=== PATIENT | female | born 1950 | race Caucasian/White ===

== ENCOUNTER 2020-03-06 11:47 | Outpatient (CLI) | payer MEDICARE, SELFPAY ==
--- NOTE | 2020-03-06 13:03 | ECG_ITS ---
Measurements Intervals [place] Rate: 75 P: 60 WI: 157 QRS: -28 QRSD: 103 T: 8 QT: 392 QTc: 440 Interpretive Statements SINUS RHYTHM BORDERLINE R WAVE PROGRESSION, ANTERIOR LEADS BORDERLINE T WAVE ABNORMALITY- INFERIOR LEADS BASELINE ARTIFACT- V6 BORDERLINE ECG Electronically Signed On 03-06-2020 13:34:52 CDT by Will Rinaldi D.O.
[2020-03-06 13:27] LABS: Basophils Percent Auto 0.9 % (0.2-1.2); Eosinophils Absolute Auto 0.1 K/mm3 (0-0.3); Eosinophils Percent Auto 1.4 % (0-4.4); Hematocrit 36.2 % (37.0-47.0); Hemoglobin 11.4 g/dL (12.0-15.0); Immature Granulocyte Absolute 0.01 K/mm3 (0.00-0.031); Immature Granulocyte Percent A 0.2 % (0-0.5); Lymphocytes Absolute Auto 1.46 K/mm3 (0.9-3.2); Lymphocytes Percent Auto 33.9 % (18.3-44.2); Mean Corpuscular HGB Conc 31.5 g/dl (32-36); Mean Corpuscular Hemoglobin 26.7 pg (26-34); Mean Corpuscular Volume 84.8 fl (80-100); Mean Platelet Volume 9.3 fl (7.4-10.4); Monocytes Absolute Auto 0.6 K/mm3 (0.1-0.6); Monocytes Percent Auto 14.2 % (2.6-8.5); Neutrophils Absolute Auto 2.1 K/mm3 (1.3-6.7); Neutrophils Percent Auto 49.4 % (45.5-73.1); Platelet Count Result 325 k/mm3 (150-375); Red Blood Count 4.27 M/mm3 (4.2-5.4); Red Cell Distribution Width 13.9 % (11.5-14.5); White Blood Count 4.3 K/mm3 (4.5-10.0)
[2020-03-06 13:31] LABS: Add Urine Microscopic? NO; Appearance Urine Clear (Clear); Bilirubin Urine Negative (Negative); Blood Urine Negative (Negative); Color Urine Yellow (Yellow); Glucose Urine UA Negative (Negative); Ketones Urine Negative (Negative); Leukocyte Esterase Ur Negative LEU/UL (Negative); Nitrate Urine Negative (Negative); Protein Urine Negative (Negative); Specific Grav Ur 1.013 (1.001-1.035); Urobilinogen Urine Negative mg/dL (<2.0)
[2020-03-06 13:36] LABS: Hemoglobin A1C 5.2 % (<5.7); Urine Cotinine NEGATIVE
[2020-03-06 13:38] LABS: Prothrombin Time 12.6 Seconds (11.1-14.7)
[2020-03-06 13:39] LABS: Partial Thromboplastin Time 29.4 SECONDS (22.3-36.8)
[2020-03-06 13:51] LABS: Anion Gap 3 mmol/L (8-16); Blood Urea Nitrogen 11 mg/dL (7-17); Calcium 9.5 mg/dL (8.4-10.2); Carbon Dioxide 30 mmol/L (22-30); Chloride 103 mmol/L (98-107); Estimated Glomerular Filt Rate 49; Glucose 101 mg/dL (65-105); Potassium 4.3 mmol/L (3.4-5.0); Sodium 136 mmol/L (137-145)
== END 2020-03-06 11:48 | disposition home or self-care (01) ==
LOC: ANHSURGERY 11:53
PROVIDERS: PCP Family Medicine; Visit Provider Orthopaedic Surgery
DX: Z01.818 Encounter for other preprocedural examination (principal); M17.11 Unilateral primary osteoarthritis, right knee
CPT/HCPCS: 36415; 80048; 80307; 81003; 82040; 83036; 85025; 85610; 85730; 86850; 86900; 86901; 87081; 93005

== ENCOUNTER 2020-03-13 00:43 | Outpatient (CLI) | payer MEDICARE, SELFPAY ==
[2020-03-13 18:01] LABS: SARS-CoV-2 RNA PCR Negative
== END 2020-03-13 00:44 | disposition home or self-care (01) ==
LOC: ANHCOVIDDT 00:43
PROVIDERS: PCP Family Medicine; Visit Provider Orthopaedic Surgery
DX: Z01.812 Encounter for preprocedural laboratory examination (principal); Z20.828 Contact with and (suspected) exposure to other viral communicable diseases
CPT/HCPCS: 87635; C9803; U0003

== ENCOUNTER 2020-03-16 12:56 | Observation (INO) | payer MEDICARE, SELFPAY ==
[2020-03-06 11:59] VITALS: BMI 39.9
[2020-03-06 12:22] VITALS: BP 145/88; PULSE 72; RESP 16; TEMP 36.7; O2SAT 98
[2020-03-15] VITALS (15 sets, daily range): BP systolic 118–153; BP diastolic 56–85; PULSE 84–95; RESP 10–21; TEMP 36.1–37; O2SAT 94–100
[2020-03-15] MEDS: ACETAMINOPHEN 500 MG TABLET 1000 MG PO (06:29)
[2020-03-15] MEDS: LACTATED RINGERS 1,000 ML 30 ML IV CONT (06:45)
--- NOTE | 2020-03-15 06:51 | WPDANESEPPF ---
Anes - Initial Pre Proc Eval Procedure: Operation Date: 03/15/20 07:30 Proposed Procedures p Right Total Knee Arthroplasty - Bill Grant MD Date/Time: 03/15/20 06:51 Surgeon: Bill Grant MD Pre Op Diagnosis: Right Knee DJD Patient Data Age: 70 Gender: F Height: 5 ft 8 in Weight: 119 kg Last Vital Signs Temp 36.7 C 03/06/20 12:22 Pulse 72 03/06/20 12:22 Resp 16 03/06/20 12:22 BP 145/88 H 03/06/20 12:22 Pulse Ox 98 03/06/20 12:22 Allergies Allergy/AdvReac Type Severity Reaction Status Date / Time No Known Allergies Allergy Verified 03/15/20 06:18 Home Medications Medication Instructions Recorded Confirmed Type azelastine 0.15 % (205.5 mcg) 2 spray NASAL BID ml 09/20/19 03/15/20 History nasal spray cholecalciferol (vitamin D3) 125 125 mcg PO DAILY 09/20/19 03/15/20 History mcg (5,000 unit) capsule donepezil 10 mg tablet 10 mg PO QAM 09/20/19 03/15/20 History fluticasone propionate 50 2 spray NASAL BID 09/20/19 03/15/20 History mcg/actuation nasal spray,suspension levocetirizine 5 mg tablet 10 mg PO DAILY 09/20/19 03/15/20 History multivitamin 1 tablet PO DAILY 09/20/19 03/15/20 History biotin 10 mg tablet 10 mg PO DAILY 02/15/20 03/15/20 History calcium carb-ergocalciferol (vit 1 tablet PO QAM 02/15/20 03/15/20 History D2) 500 mg (1,250 mg)-200 unit tablet chlorhexidine gluconate 4 % 1 applic TOPICAL ONCE #237 ml 02/15/20 03/06/20 Rx topical liquid duloxetine 60 mg capsule,delayed 60 mg PO DAILY 02/15/20 03/15/20 History release sprinkle folic acid 800 mcg tablet 0.8 mg PO DAILY 02/15/20 03/15/20 History glucos sul [id number]-C-Mn 1,100 mg PO DAILY 02/15/20 03/15/20 History magnesium citrate 100 mg tablet 1,000 mg PO BID 02/15/20 03/15/20 History mecobalamin (vitamin B12) 500 mcg PO QAM 02/15/20 03/15/20 History omega-3 fatty acids 1,000 mg 1,000 mg PO DAILY 02/15/20 03/15/20 History capsule vit E-E [id number] 300 mg PO BID 02/15/20 03/15/20 History zinc 50 mg PO DAILY 02/15/20 03/15/20 History bupropion HCl 400 mg PO QAM 03/06/20 03/15/20 History buspirone 30 mg PO QAM 03/06/20 03/15/20 History olopatadine [Pataday] 1 drp OPHTHALMIC (EYE) PRN PRN 03/06/20 03/15/20 History xylitol [Xylimelts] 550 mg MUCOUS MEMBRANE PRN PRN 03/06/20 03/15/20 History Patient hx anesthesia problems: none Family hx anesthesia problems: none PMFSH Past Medical History Medical History (Updated 03/15/20 @ 06:58 by Isauro Limon MD) Anxiety Chronic renal insufficiency Depression Dry mouth Dyslipidemia Environmental allergies Left breast mass Mild cognitive impairment Morbid obesity Osteoarthritis Osteopenia Seasonal allergies Vision abnormalities Vitamin D deficiency Weight gain Surgical History Surgical History History of bariatric surgery History of cataract surgery Family History Family History Other Depression Family history of Alzheimer's disease Family history of atrial fibrillation Social History Social History (Updated 03/15/20 @ 06:59 by Isauro Limon MD) Smoking packs per day: 0.5 Smoking cigarettes per day: 10.0 Years smoked: 20 Smoking pack-years: 10.00 Smoking status: Former smoker Tobacco type: cigarettes Second hand tobacco smoke exposure: No Smoking end date: 06/16/94 Additional smoking assessment comments: DENIES ANY FORM OF TOBACCO/NICOTINE USE Alcohol intake: current Drinks per week: 5 Alcohol use details: WINE Substance use: never Substance use type: does not use Living arrangements: with family Gender identity (if verbalized by the patient): Female Spiritual care concerns: No Anes - Eval Final PreProcedure Day of Procedure 03/15/20 06:51 Patient weight: morbidly obese Heart: regular rate and rhythm Lungs: clear to auscultation Airway: M
[2020-03-15] MEDS: TRANEXAMIC ACID 1,000MG/ISO100 1,000 MG/100 ML BAG 200 MG IVPB (07:01)
--- NOTE | 2020-03-15 07:19 | WPDHPUPDATE1 ---
History and Physical Update Update Date/Time: 03/15/20 07:19 History and Physical has been reviewed, including an updated exam of the patient. There are NO changes in the patient's condition. Risks, benefits, and alternatives have been discussed and questions answered. Patient agrees to proceed with procedure.
[2020-03-15] MEDS: ceFAZolin 3 GM/D5W 100 ML 100 ML IVPB (07:27)
--- NOTE | 2020-03-15 09:56 | PM.PROC ---
Procedure Note - Detailed Date of procedure: 03/15/20 Pre-op diagnosis: Right Knee DJD Post-op diagnosis: same Procedure performed: R TKA Description of procedure: THE RIGHT KNEE WAS PREPPED AND DRAPED IN THE STERILE FASHION. A MIDLINE SKIN INCISION WAS MADE. A MEDIAL PARAPATELLAR ARTHROTOMY WAS MADE. THE PATELLA WAS EVERTED. THERE WAS TRICOMPARTMENT DJD. THERE WAS MINIMAL PATELLA DJD. AN INTRAMEDULLARY KATHI WAS PLACED IN THE FEMUR. A DISTAL FEMORAL CUT WAS MADE IN 5 DEGREES OF VALGUS REMOVING APPROXIMATELY 9 MM OF BONE FROM THE DISTAL FEMUR. THE FEMUR WAS SIZED TO 60. A 72.5 FEMORAL CUTTING BLOCK WAS PLACED IN 3 DEGREES OF EXTERNAL ROTATION AND IN ALIGNMENT WITH ALEX'S LINE AND THE TRANSEPICONDYLAR AXIS. ANTERIOR POSTERIOR AND CHAMFER CUTS WERE MADE. THE CUTS WERE EXCELLENT. NEXT AN INTRAMEDULLARY CUTTING GUIDE WAS PLACED IN THE TIBIA. A TRANS TIBIAL CUT WAS MADE ALONG THE LONG AXIS OF THE TIBIA. APPROXIMATELY 10 MM OF BONE WAS REMOVED FROM THE HIGH SIDE OF THE TIBIA. THE TIBIA WAS THEN PLANED TO A SMOOTH SURFACE. POSTERIOR FEMORAL OSTEOPHYTES WERE REMOVED FROM THE FEMORAL CONDYLES. A 75 TIBIAL TRIAL WAS PLACED IN ALIGNMENT WITH THE 1/3 MEDIAL ASPECT OF THE TIBIAL TUBERCLE. THEN A 60 FEMORAL TRIAL COMPONENT WAS PLACED. BOTH HAD EXCELLENT FITS. EVENTUALLY A 12 MM POLYETHYLENE TRIAL COMPONENT WAS PLACED. THE KNEE WAS TAKEN THROUGH A RANGE OF MOTION. THE KNEE CAME OUT TO FULL EXTENSION. THERE WAS NO ABNORMAL TILT TO THE PATELLA. THERE WAS GOOD A/P AND VARUS/VALGUS STABILITY. THERE WAS NO EXCESSIVE ROLL BACK WITH FLEXION. THE TRIAL COMPONENTS WERE REMOVED. THEN A 72.5 FEMORAL COMPONENT AND 75 TIBIAL COMPONENT WITH A 10 CR POLYETHYLENE COMPONENT WERE PRESS FIT INTO PLACE. THE IMPLANTS WERE FLUSH WITH THE CUT BONE SURFACES. THE KNEE WAS TAKEN THROUGH A ROM AGAIN AND FOUND TO BE STABLE WITH NO PATELLA TILT NO EXCESSIVE ROLL BACK WITH FLEXION AND GOOD STABILITY WITH COMPLETE AND FULL EXTENSION. THE KNEE WAS IRRIGATED WITH STERILE BETADINE AND WATER FOR ABOUT 3 MINUTES. THE BLEEDERS WERE CAUTERIZED. THE ARTHROTOMY WAS REPAIRED WITH NUMBER 1 VICRYL. THE SUB CUTANEOUS LAYER WITH 2-0 VICRYL AND THE SKIN WITH SUSAN. THE WOUND WAS WASHED AND A STERILE DRESSING WAS APPLIED. PATIENT WAS EXTUBATED. Anesthesia: GETA Surgeon: Bill Grant MD Estimated blood loss (mL): 100 Complications: No immediate complications Condition: stable Disposition: PACU
[2020-03-15] MEDS: fentaNYL CITRATE INJ (*CRX) 100 MCG/2 ML VIAL 25 MCG IV PUSH ×8 (10:05→10:28)
[2020-03-15] MEDS: HYDROmorphone HCL INJ (*CRX) 1 MG/ML SYR 0.5 MG IV PUSH ×4 (10:34→11:05)
--- NOTE | 2020-03-15 11:20 | ADMGEN ---
This patient, Claire Fuller, was admitted to Medical Room 257-01 from surgery. Patient/family oriented to hospital policies and general routines including ID bracelet, bed and alarms, visiting hours, pain management, procedures, bathroom and other care routines, personal items, smoking policy, room service/diet, and visiting hours. Valuables list has been completed. Information on how to activate the Rapid Response Team has been discussed. Patient/Family are encouraged to report perceived risks to care and to ask questions if they do not understand what they are told or what they should do.
[2020-03-15] MEDS: SODIUM CHLORIDE 0.9% IV 1,000 ML 125 ML IV CONT ×2 (11:40→19:22)
[2020-03-15] MEDS: MORPHINE SULFATE (*CRX) 4 MG/ML INJ IV PUSH ×4 (13:14→23:02)
[2020-03-15] MEDS: ceFAZolin 2 GM/D5W 50 ML 2 GM/50 ML BAG IVPB ×2 (14:11→23:02)
[2020-03-15] MEDS: DOCUSATE SODIUM 100 MG CAPSULE PO (17:15)
[2020-03-15] MEDS: VITAMIN E 400 UNIT CAPSULE PO (17:16)
[2020-03-15] MEDS: RIVAROXABAN 10 MG TABLET PO (17:16)
--- NOTE | 2020-03-15 18:17 | PM.IMCN ---
Assessment and Plan Assessment and plan (1) Status post total right knee replacement: Code(s): Z96.651 - Presence of right artificial knee joint Status: Acute Assessment and Plan: DVT prophylaxis per Dr. Grant patient is on Xarelto and has bilateral SCDs. She has Miah wrap to her right knee. Postop care per Dr. Grant. (2) Dementia: Code(s): F03.90 - Unspecified dementia without behavioral disturbance Status: Acute Assessment and Plan: Continue with Aricept. (3) Depression: Qualifiers: Depression Type: unspecified Qualified Code(s): F32.9 - Major depressive disorder, single episode, unspecified Code(s): F32.9 - Major depressive disorder, single episode, unspecified Status: Chronic Assessment and Plan: Continue Cymbalta. She is also on BuSpar (4) Anxiety: Code(s): F41.9 - Anxiety disorder, unspecified Status: Chronic Assessment and Plan: Continue with Cymbalta. Additional Plan History of gastric bypass surgery. The patient had been on multiple vitamins at home. Those are on hold at this time. Seasonal allergies patient is on Claritin. the patient has moistening drops for her eye she has a history of dry eyes and she has moisturizing lozenges for her throat she has a dry mouth. I asked her she had Sojourns and she stated that she did not. HPI Data of Consult Consult date: 03/15/20 Requesting Physician: Bill Grant MD Primary Care Provider: Aye Kwan MD Consult Narrative Narrative: Claire Fuller is a 70 year old female Who had been complaining of bilateral knee pain. The patient suspected that she had a meniscus tear in the left knee however she had bone on bone arthritis to her right knee. The patient stated that she has been getting gel injections and steroids in her knees and that seems to last for about 6 months. Sometimes the patient has intermittent discomfort and sometime she has difficulty with daily living. The patient decided that she would get the right knee replaced since it was [id number] before she had surgery on the left knee. The patient had noted that she had a gel injection about a month ago and that was not providing any relief any longer. She had had several in the past. See operative report for right total knee arthroplasty for Dr. Grant. Estimated blood loss was 100 cc per procedure note. I thank Dr. Grant for this consult. Date of service 03/15/2020 Review of Systems Review of Systems: All systems reviewed & are unremarkable except as noted in HPI and below Constitutional: Constitutional: Reports as per HPI and Reports no additional constitutional complaints Eyes: Eyes: Reports as per HPI and Reports no additional eye complaints ENT: Reports system reviewed and no additional complaints, except as documented and Reports Normal hearing present Cardiovascular: Cardiovascular: Reports no additional cardiovascular complaints Respiratory: Respiratory: Reports no additional respiratory complaints and Reports no additional respiratory complaints Gastrointestinal: Gastrointestinal: Reports as per HPI and Reports no additional gastrointestinal complaints Musculoskeletal: Musculoskeletal: Reports no additional musculoskeletal complaints Integumentary/Breasts: Skin/Breast: Reports system reviewed and no additional complaints, except as docu and Reports as per HPI Neurologic: Reports system reviewed and no additional complaints, except as documented, Reports as per HPI and Reports Normal hearing present Psychiatric: Psychiatric: Reports no additional psychiatric complaints and Reports as per HPI Endocrine: Endocrine: Reports no additional endocrine complaints Hematologic/Lymphatic: Hematologic/Lymphatic: Reports no additional hematologic/lymphatic complaints Allergic/Immunologic: Allergic/Immunologic: Reports no additional allergic/immunologic complaints PMFSH P
--- NOTE | ~2020-03-16 | XR_ITS ---
EXAMINATION: XR knee RT 2V DATE: 03/15/2020 10:05 INDICATION: Total right knee arthroplasty. Postop. TECHNIQUE: 2 views of right knee were obtained. COMPARISON: Right knee radiograph 02/14/2020 FINDINGS: There is a total right knee arthroplasty in near-anatomic alignment without patellar resurf acing. No fracture. There is gas in the knee joint and soft tissues, consistent with recent surgery. Anterior skin ojse juan are noted. IMPRESSION: 1. Total right knee arthroplasty in near-anatomic alignment. Reviewed, dictated and finalized at location A.
[2020-03-16 00:57] VITALS: BP 110/50; PULSE 99; RESP 18; TEMP 36.4; O2SAT 96
[2020-03-16] MEDS: MORPHINE SULFATE (*CRX) 4 MG/ML INJ IV PUSH ×4 (01:29→20:34)
[2020-03-16] MEDS: oxyCODONE/ACETAMINOPHEN (*CRX) 5-325 MG TABLET 1 TABLET PO ×4 (05:48→18:37)
[2020-03-16 05:58] LABS: Basophils Percent Auto 0.3 % (0.2-1.2); Eosinophils Percent Auto 0.2 % (0-4.4); Hematocrit 28.2 % (37.0-47.0); Hemoglobin 8.9 g/dL (12.0-15.0); Immature Granulocyte Absolute 0.02 K/mm3 (0.00-0.031); Immature Granulocyte Percent A 0.3 % (0-0.5); Lymphocytes Absolute Auto 0.96 K/mm3 (0.9-3.2); Lymphocytes Percent Auto 15.2 % (18.3-44.2); Mean Corpuscular HGB Conc 31.6 g/dl (32-36); Mean Corpuscular Hemoglobin 26.1 pg (26-34); Mean Corpuscular Volume 82.7 fl (80-100); Mean Platelet Volume 9.9 fl (7.4-10.4); Monocytes Absolute Auto 1.1 K/mm3 (0.1-0.6); Monocytes Percent Auto 17.9 % (2.6-8.5); Neutrophils Absolute Auto 4.2 K/mm3 (1.3-6.7); Neutrophils Percent Auto 66.1 % (45.5-73.1); Platelet Count Result 238 k/mm3 (150-375); Red Blood Count 3.41 M/mm3 (4.2-5.4); Red Cell Distribution Width 14.2 % (11.5-14.5); White Blood Count 6.3 K/mm3 (4.5-10.0)
[2020-03-16 06:00] VITALS: BP 111/52; PULSE 91; RESP 18; TEMP 36.2; O2SAT 96
[2020-03-16 06:04] LABS: Anion Gap 5 mmol/L (8-16); Blood Urea Nitrogen 13 mg/dL (7-17); Calcium 8.4 mg/dL (8.4-10.2); Carbon Dioxide 28 mmol/L (22-30); Chloride 100 mmol/L (98-107); Estimated CRCL calculation 63 ml/min; Estimated Glomerular Filt Rate 55; Glucose 117 mg/dL (65-105); Potassium 4.2 mmol/L (3.4-5.0); Sodium 133 mmol/L (137-145)
[2020-03-16] MEDS: ceFAZolin 2 GM/D5W 50 ML 2 GM/50 ML BAG IVPB (06:08)
[2020-03-16] MEDS: busPIRone HCL 10 MG TABLET 30 MG PO (08:06)
[2020-03-16] MEDS: VITAMIN E 400 UNIT CAPSULE PO ×2 (08:07→16:42)
[2020-03-16] MEDS: DOCUSATE SODIUM 100 MG CAPSULE PO ×2 (08:07→16:41)
[2020-03-16] MEDS: DONEPEZIL HCL 10 MG TABLET PO (08:07)
[2020-03-16] MEDS: ZINC SULFATE 220 MG CAPSULE PO (08:07)
[2020-03-16] MEDS: DULoxetine HCL 60 MG CAPSULE.DR PO (08:07)
[2020-03-16] MEDS: LORATADINE 10 MG TABLET PO (08:07)
[2020-03-16] MEDS: buPROPion HCL SR (12HR) 100 MG TABCR 400 MG PO (08:08)
--- NOTE | 2020-03-16 09:30 | PM.PNORT ---
Progress Note: A&P Assessment and Plan (1) Status post total right knee replacement: Code(s): Z96.651 - Presence of right artificial knee joint Status: Acute Assessment and Plan: POD #1: RIGHT TKA Continue PT/OT. WBAT. Walker. HIGH FALL RISK. Continue pain control. Ice knee. No pillows under knee. Continue DVT prophylaxis. Incentive spirometry. SCDs. Monitor dressing. Change tomorrow. Dispo: Home with Home Health pending progress with PT/OT. Subjective Subjective Date/Time Seen: 03/16/20 09:30 POD #1: Right TKA No new complaints. Tolerating diet well. Complaints of pain of the right knee, improving with medication. Stiffness. Reviewed no pillows under knee with patient/family member at bedside. Review of Systems Review of Systems: All systems reviewed & are unremarkable except as noted in HPI and below Constitutional: Constitutional: Denies chills, Denies fatigue, Denies fever(s), Denies night sweats and Denies weakness Cardiovascular: Cardiovascular: Denies chest pain, Denies lightheadedness and Denies palpitations Respiratory: Respiratory: Denies cough, Denies dyspnea and Denies wheezing Gastrointestinal: Gastrointestinal: Denies abdominal pain, Denies diarrhea, Denies nausea and Denies vomiting Genitourinary: Genitourinary: Reports nocturia, Denies dysuria and Denies urinary hesitancy Musculoskeletal: Musculoskeletal: Reports arthralgias (right knee ) and Reports joint swelling (right knee ) Exam Const: General: comfortable and no acute distress Resp: Effort & Inspection: normal respiratory effort Cardio: Rate: regular rate Rhythm: regular rhythm GI: Inspection: non-distended Skin: Wounds: wounds noted (incision c/d/i. ) Neuro: General: No gait normal (antalgic ) Cognition (Neuro): normal cognition Motor exam (neuro): strength not 5/5 throughout Sensory Exam: normal sensation Extrem: Right lower extremity: normal capillary refill, knee (right knee TKA incision c/d/i. ) Details: tenderness (diffuse ) and swelling (moderate), lower leg (Negative Sriram's Sign ), ankle (+ankle dorsiflexion/plantarflexion .) and foot (2+ pedal pulses. Sensation intact to light touch. ) Objective Data Vital Signs Vital Signs: Vital Signs - 24 hr 03/15/20 09:55 03/15/20 10:10 03/15/20 10:25 Temperature 36.8 C Pulse Rate 94 93 95 Respiratory Rate 16 14 18 Blood Pressure 140/85 153/82 H 142/80 H Pulse Oximetry 95 95 97 03/15/20 10:40 03/15/20 10:55 03/15/20 11:10 Temperature Pulse Rate 88 91 91 Respiratory Rate 10 L 18 12 Blood Pressure 132/76 143/84 H 146/81 H Pulse Oximetry 94 95 95 03/15/20 11:25 03/15/20 11:40 03/15/20 11:45 Temperature 36.1 C L 36.1 C L Pulse Rate 88 89 Respiratory Rate 20 18 Blood Pressure 134/70 129/67 Pulse Oximetry 97 98 97 03/15/20 12:10 03/15/20 13:10 03/15/20 20:00 Temperature 36.3 C L 36.1 C L Pulse Rate 87 84 88 Respiratory Rate 18 18 21 H Blood Pressure 125/64 125/73 Pulse Oximetry 95 95 100 03/15/20 20:57 03/15/20 22:00 03/16/20 00:57 Temperature 37.0 C 37.0 C 36.4 C L Pulse Rate 88 88 99 Respiratory Rate 21 H 21 H 18 Blood Pressure 118/56 L 118/56 L 110/50 L Pulse Oximetry 100 100 96 03/16/20 06:00 Temperature 36.2 C L Pulse Rate 91 Respiratory Rate 18 Blood Pressure 111/52 L Pulse Oximetry 96 Intake/Output Intake/Output: Intake & Output 03/13/20 03/14/20 03/15/20 03/16/20 23:59 23:59 23:59 23:59 Intake Total 2340 1300 Output Total 280 400 Balance 2060 900 Meds/Results Medications: Active Medications Generic Name Dose Route Start Last Admin Trade Name Freq PRN Reason Stop Dose Admin Acetaminophen 1,000 mg 03/15/20 11:12 Tylenol Tablet PO Q6H PRN Mild Pain (1-3) Bupropion HCl 400 mg 03/16/20 09:00 03/16/20 08:08 Wellbutrin-Sr (12hr) PO 400 mg QAM JEREMY Administration Buspirone HCl 30 mg 03/16/20 09:00 03/16/20 08:06 Buspar PO 30 mg QAM SC
[2020-03-16 10:00] VITALS: BP 100/52; PULSE 90; RESP 16; TEMP 37; O2SAT 98
--- NOTE | 2020-03-16 11:02 | WPDANESPN ---
Anes - Prog Note Post-Op Date/Time: 03/16/20 11:02 Cardiovascular status: normal Respiratory status: normal Airway patency: baseline Mental status: baseline Post-Op hydration status: normal Vital Signs: Last Vital Signs Temp 37.0 C 03/16/20 10:00 Pulse 90 03/16/20 10:00 Resp 16 03/16/20 10:00 BP 100/52 L 03/16/20 10:00 Pulse Ox 98 03/16/20 10:00 Pain Score (VAS): 0 I/O: Intake & Output 03/15/20 03/16/20 03/16/20 23:59 07:59 15:59 Intake Total 1590 1300 240 Output Total 400 Balance 1590 900 240 Laboratory Tests 03/16/20 05:29 03/16/20 05:29 03/16/20 03/16/20 05:29 05:29 WBC 6.3 RBC 3.41 L Hgb 8.9 L Hct 28.2 L MCV 82.7 MCH 26.1 MCHC 31.6 L RDW 14.2 Plt Count 238 MPV 9.9 Immature Gran % (Auto) 0.3 Neut % (Auto) 66.1 Lymph % (Auto) 15.2 L [place] % (Auto) 17.9 H Eos % (Auto) 0.2 Baso % (Auto) 0.3 Lymph # (Auto) 0.96 [place] # (Auto) 1.1 H Eos # (Auto) 0.0 Baso # (Auto) 0.0 Abs Immat Gran (auto) 0.02 Absolute Neuts (auto) 4.2 Absolute Nucleated RBC 0.0 Nucleated RBC % 0.0 Sodium 133 L Potassium 4.2 Chloride 100 Carbon Dioxide 28 Anion Gap 5 L BUN 13 Creatinine 1.00 Estim Creat Clear Calc 63 Estimated GFR 55 L Glucose 117 H Calcium 8.4 Post-procedural complaints: none Patient Feedback: Patient satisfied with anesthetic care.
[2020-03-16 14:00] VITALS: BP 121/54; PULSE 91; RESP 14; TEMP 36.8; O2SAT 95
--- NOTE | 2020-03-16 15:19 | PM.IMPN ---
Progress Note: A&P Assessment and Plan (1) Status post total right knee replacement: Code(s): Z96.651 - Presence of right artificial knee joint Status: Acute Assessment and Plan: DVT prophylaxis per Dr. Grant patient is on Xarelto and has bilateral SCDs. She has Miah wrap to her right knee. Postop care per Dr. Grant. 03/16/20 15:19Patient is 70-year-old female with a history of severe arthritis in right knee had been seen by orthopedic surgeon and conservative management failed and on 03/15 patient was taken to OR and a right knee total arthroplasty, today patient states the pain in the right knee is persist, was able to to participate in physical therapy, denies any complaints of abdominal pain nausea or vomiting fever or chills, patient is to continue PT OT 1 more day, patient be seen by her surgeon further recommendation to follow possibly discharge tomorrow. (2) Dementia: Code(s): F03.90 - Unspecified dementia without behavioral disturbance Status: Acute Assessment and Plan: Continue with Aricept. (3) Depression: Qualifiers: Depression Type: unspecified Qualified Code(s): F32.9 - Major depressive disorder, single episode, unspecified Code(s): F32.9 - Major depressive disorder, single episode, unspecified Status: Chronic Assessment and Plan: Continue Cymbalta. She is also on BuSpar (4) Anxiety: Code(s): F41.9 - Anxiety disorder, unspecified Status: Chronic Assessment and Plan: Continue with Cymbalta. Additional Plan History of gastric bypass surgery. The patient had been on multiple vitamins at home. Those are on hold at this time. Seasonal allergies patient is on Claritin. the patient has moistening drops for her eye she has a history of dry eyes and she has moisturizing lozenges for her throat she has a dry mouth. I asked her she had Sojourns and she stated that she did not. Subjective Date/time seen: 03/16/20 15:19Patient is 70-year-old female with a history of severe arthritis in right knee had been seen by orthopedic surgeon and conservative management failed and on 03/15 patient was taken to OR and a right knee total arthroplasty, today patient states the pain in the right knee is persist, was able to to participate in physical therapy, denies any complaints of abdominal pain nausea or vomiting fever or chills, patient is to continue PT OT 1 more day, patient be seen by her surgeon further recommendation to follow possibly discharge tomorrow. Review of Systems Review of Systems: All systems reviewed & are unremarkable except as noted in HPI and below Exam Const: General: comfortable and no acute distress HENMT: General nose exam: Normal nares present Eyes: General: appearance normal, both eyes and all related structures Sclera: sclerae normal Neck: Neck: supple Resp: Effort & Inspection: normal respiratory effort Auscultation: clear to auscultation bilaterally Cardio: Rate: regular rate Rhythm: regular rhythm GI: Auscultation: normal bowel sounds Skin: General skin exam: normal color Neuro: Speech: normal speech Sensory Exam: normal sensation Extrem: General: normal to inspection Psych: Affect: Anxious affect present Objective Data Vital Signs Vital Signs: Vital Signs - 24 hr 03/15/20 20:00 03/15/20 20:57 03/15/20 22:00 Temperature 98.6 F 98.6 F Pulse Rate 88 88 88 Respiratory Rate 21 H 21 H 21 H Blood Pressure 118/56 L 118/56 L Pulse Oximetry 100 100 100 03/16/20 00:57 03/16/20 06:00 03/16/20 10:00 Temperature 97.5 F L 97.2 F L 98.6 F Pulse Rate 99 91 90 Respiratory Rate 18 18 16 Blood Pressure 110/50 L 111/52 L 100/52 L Pulse Oximetry 96 96 98 Intake/Output Intake/Output: Intake & Output 03/13/20 03/14/20 03/15/20 03/16/20 23:59 23:59 23:59 23:59 Intake Total 2340 1540 Output Total 280 400 Balance 2060 1140 Meds/Results Medications: Active
[2020-03-16] MEDS: RIVAROXABAN 10 MG TABLET PO (16:42)
[2020-03-16 18:00] VITALS: BP 118/64; PULSE 94; RESP 16; TEMP 36.8; O2SAT 94
[2020-03-16 22:00] VITALS: BP 125/56; PULSE 97; RESP 20; TEMP 37.6; O2SAT 98
[2020-03-17 02:00] VITALS: BP 117/50; PULSE 100; RESP 20; TEMP 36.4; O2SAT 98
[2020-03-17] MEDS: oxyCODONE/ACETAMINOPHEN (*CRX) 5-325 MG TABLET 1 TABLET PO ×5 (02:29→21:13)
[2020-03-17 06:00] VITALS: BP 106/52; PULSE 92; RESP 18; TEMP 36.7; O2SAT 96
[2020-03-17] MEDS: MORPHINE SULFATE (*CRX) 4 MG/ML INJ IV PUSH (06:17)
[2020-03-17] MEDS: busPIRone HCL 10 MG TABLET 30 MG PO (08:01)
[2020-03-17] MEDS: VITAMIN E 400 UNIT CAPSULE PO ×2 (08:01→17:48)
[2020-03-17] MEDS: buPROPion HCL SR (12HR) 100 MG TABCR 400 MG PO (08:01)
[2020-03-17] MEDS: DOCUSATE SODIUM 100 MG CAPSULE PO ×2 (08:01→17:48)
[2020-03-17] MEDS: DONEPEZIL HCL 10 MG TABLET PO (08:02)
[2020-03-17] MEDS: ZINC SULFATE 220 MG CAPSULE PO (08:02)
[2020-03-17] MEDS: LORATADINE 10 MG TABLET PO (08:02)
[2020-03-17] MEDS: DULoxetine HCL 60 MG CAPSULE.DR PO (08:04)
--- NOTE | 2020-03-17 08:29 | ECG_ITS ---
Measurements Intervals [place] Rate: 89 P: 56 [place]: 155 QRS: -19 QRSD: 103 T: 26 QT: 370 QTc: 453 Interpretive Statements SINUS RHYTHM VENTRICULAR PREMATURE COMPLEX POSSIBLE LEFT ATRIAL ENLARGEMENT INCOMPLETE RIGHT BUNDLE BRANCH BLOCK DELAYED PRECORDIAL R/S TRANSITION BORDERLINE T WAVE ABNORMALITY- INFERIOR LEADS BASELINE ARTIFACT- V3-V4 BORDERLINE ECG Electronically Signed On 03-17-2020 10:35:28 CDT by Will Rinaldi D.O.
--- NOTE | 2020-03-17 08:47 | PCOTNOTE ---
Attempted to see patient this am, however patient refused. No, not today. I'm still having a lot of pain, and I'm not able to put a lot of weight on my leg. Maybe tomorrow. Encouraged patient to participate, however patient still declined, I'm hoping they will let me stay another day. Will check back on patient later.
[2020-03-17 08:49] LABS: Hematocrit 26.5 % (37.0-47.0); Hemoglobin 8.8 g/dL (12.0-15.0); Mean Corpuscular HGB Conc 33.2 g/dl (32-36); Mean Corpuscular Hemoglobin 27.3 pg (26-34); Mean Corpuscular Volume 82.3 fl (80-100); Mean Platelet Volume 10.2 fl (7.4-10.4); Platelet Count Result 209 k/mm3 (150-375); Red Blood Count 3.22 M/mm3 (4.2-5.4); Red Cell Distribution Width 14.5 % (11.5-14.5); White Blood Count 8.8 K/mm3 (4.5-10.0)
[2020-03-17 09:06] LABS: Alanine Aminotransferase 26 U/L (4-35); Albumin Level 3.3 g/dL (3.5-5.1); Alkaline Phosphatase 77 U/L (38-126); Anion Gap 7 mmol/L (8-16); Aspartate Amino Transferase 37 U/L (14-36); Bilirubin,Total 0.4 mg/dL (0.2-1.3); Blood Urea Nitrogen 10 mg/dL (7-17); Calcium 8.5 mg/dL (8.4-10.2); Carbon Dioxide 26 mmol/L (22-30); Chloride 97 mmol/L (98-107); Estimated CRCL calculation 63 ml/min; Estimated Glomerular Filt Rate 55; Glucose 121 mg/dL (65-105); Potassium 3.7 mmol/L (3.4-5.0); Sodium 130 mmol/L (137-145)
[2020-03-17 10:44] VITALS: O2SAT 93
[2020-03-17] MEDS: POTASSIUM CHLORIDE 20 MEQ TABLET 40 MEQ PO (12:41)
[2020-03-17 14:00] VITALS: BP 132/64; PULSE 100; RESP 14; TEMP 36.6; O2SAT 98
--- NOTE | 2020-03-17 14:31 | PM.IMPN ---
Progress Note: A&P Assessment and Plan (1) Status post total right knee replacement: Code(s): Z96.651 - Presence of right artificial knee joint Status: Acute Assessment and Plan: DVT prophylaxis per Dr. Grant patient is on Xarelto and has bilateral SCDs. She has Miah wrap to her right knee. Postop care per Dr. Grant. 03/17/20 14:31 Patient is 70-year-old female with a history of severe arthritis in right knee had been seen by orthopedic surgeon and conservative management failed and on 03/15 patient was taken to OR and had a right knee total arthroplasty, today patient states the pain in the right knee is little better, was able to to participate in physical therapy, believes one more day of PT will help with ambulation and pain before goint home tomorrow, denies any complaints of abdominal pain nausea or vomiting fever or chills, patient is to continue PT OT 1 more day, patient will be seen by her surgeon and further recommendation to follow possibly discharge tomorrow. (2) Dementia: Code(s): F03.90 - Unspecified dementia without behavioral disturbance Status: Acute Assessment and Plan: Continue with Aricept. (3) Depression: Qualifiers: Depression Type: unspecified Qualified Code(s): F32.9 - Major depressive disorder, single episode, unspecified Code(s): F32.9 - Major depressive disorder, single episode, unspecified Status: Chronic Assessment and Plan: Continue Cymbalta. She is also on BuSpar (4) Anxiety: Code(s): F41.9 - Anxiety disorder, unspecified Status: Chronic Assessment and Plan: Continue with Cymbalta. Subjective Date/time seen: 03/17/20 14:31 Patient is 70-year-old female with a history of severe arthritis in right knee had been seen by orthopedic surgeon and conservative management failed and on 03/15 patient was taken to OR and had a right knee total arthroplasty, today patient states the pain in the right knee is little better, was able to to participate in physical therapy, believes one more day of PT will help with ambulation and pain before goint home tomorrow, denies any complaints of abdominal pain nausea or vomiting fever or chills, patient is to continue PT OT 1 more day, patient will be seen by her surgeon and further recommendation to follow possibly discharge tomorrow. Review of Systems Review of Systems: All systems reviewed & are unremarkable except as noted in HPI and below Exam Const: General: comfortable and no acute distress HENMT: General nose exam: Normal nares present Eyes: Sclera: sclerae normal Neck: Neck: supple Resp: Effort & Inspection: normal respiratory effort Auscultation: clear to auscultation bilaterally Cardio: Rate: regular rate Rhythm: regular rhythm GI: Auscultation: normal bowel sounds Skin: General skin exam: normal color Neuro: Speech: normal speech Sensory Exam: normal sensation Extrem: Other: Right knee in immoblizer Psych: Affect: Anxious affect present Objective Data Vital Signs Vital Signs: Vital Signs - 24 hr 03/16/20 18:00 03/16/20 22:00 03/17/20 02:00 Temperature 98.2 F 99.6 F 97.5 F L Pulse Rate 94 97 100 Respiratory Rate 16 20 20 Blood Pressure 118/64 125/56 L 117/50 L Pulse Oximetry 94 98 98 03/17/20 06:00 03/17/20 10:44 Temperature 98.0 F Pulse Rate 92 Respiratory Rate 18 Blood Pressure 106/52 L Pulse Oximetry 96 93 Intake/Output Intake/Output: Intake & Output 03/14/20 03/15/20 03/16/20 03/17/20 23:59 23:59 23:59 23:59 Intake Total 2340 2320 1180 Output Total 280 400 900 Balance 2060 1920 280 Meds/Results Medications: Active Medications Generic Name Dose Route Start Last Admin Trade Name Freq PRN Reason Stop Dose Admin Acetaminophen 1,000 mg 03/15/20 11:12 Tylenol Tablet PO Q6H PRN Mild Pain (1-3) Bupropion HCl 400 mg 03/16/20 09:00 03/17/20 08:01 Wellbutrin-Sr (12hr
--- NOTE | 2020-03-17 14:54 | PM.PNORT ---
Progress Note: A&P Assessment and Plan (1) Status post total right knee replacement: Code(s): Z96.651 - Presence of right artificial knee joint Status: Acute Assessment and Plan: POD #2: RIGHT TKA Continue PT/OT. WBAT. Walker. HIGH FALL RISK. Continue pain control. Ice knee. No pillows under knee. Continue DVT prophylaxis. Incentive spirometry. SCDs. Monitor dressing. Change tomorrow prior to discharge, nursing aware. Dispo: Home with Home Health likely tomorrow progress with PT/OT. Dr. Grant present for assessment and decision for postop care. Subjective Subjective Date/Time Seen: 03/17/20 14:54 POD #2: Right TKA Continue complaints of pain. Slow progress with PT/OT. Tolerating diet well. Complaints of pain of the right posterior knee, tolerable with medication. Stiffness. Review of Systems Review of Systems: All systems reviewed & are unremarkable except as noted in HPI and below Constitutional: Constitutional: Denies chills, Denies fatigue, Denies fever(s), Denies night sweats and Denies weakness Cardiovascular: Cardiovascular: Denies chest pain, Denies lightheadedness and Denies palpitations Respiratory: Respiratory: Denies cough, Denies dyspnea and Denies wheezing Gastrointestinal: Gastrointestinal: Denies abdominal pain, Denies diarrhea, Denies nausea and Denies vomiting Genitourinary: Genitourinary: Reports nocturia, Denies dysuria and Denies urinary hesitancy Musculoskeletal: Musculoskeletal: Reports arthralgias (right knee ) and Reports joint swelling (right knee ) Exam Const: General: comfortable and no acute distress Resp: Effort & Inspection: normal respiratory effort Cardio: Rate: regular rate Rhythm: regular rhythm GI: Inspection: non-distended Skin: Wounds: wounds noted (incision c/d/i. ) Neuro: General: No gait normal (antalgic ) Cognition (Neuro): normal cognition Motor exam (neuro): strength not 5/5 throughout Sensory Exam: normal sensation Extrem: Right lower extremity: normal capillary refill, knee (right knee TKA incision c/d/i. ) Details: tenderness (diffuse ) and swelling (moderate), lower leg (Negative Sriram's Sign ), ankle (+ankle dorsiflexion/plantarflexion .) and foot (2+ pedal pulses. Sensation intact to light touch. ) Objective Data Vital Signs Vital Signs: Vital Signs - 24 hr 03/16/20 18:00 03/16/20 22:00 03/17/20 02:00 Temperature 36.8 C 37.6 C 36.4 C L Pulse Rate 94 97 100 Respiratory Rate 16 20 20 Blood Pressure 118/64 125/56 L 117/50 L Pulse Oximetry 94 98 98 03/17/20 06:00 03/17/20 10:44 Temperature 36.7 C Pulse Rate 92 Respiratory Rate 18 Blood Pressure 106/52 L Pulse Oximetry 96 93 Intake/Output Intake/Output: Intake & Output 03/14/20 03/15/20 03/16/20 03/17/20 23:59 23:59 23:59 23:59 Intake Total 2340 2320 1180 Output Total 280 400 900 Balance 2060 1920 280 Meds/Results Medications: Active Medications Generic Name Dose Route Start Last Admin Trade Name Freq PRN Reason Stop Dose Admin Acetaminophen 1,000 mg 03/15/20 11:12 Tylenol Tablet PO Q6H PRN Mild Pain (1-3) Bupropion HCl 400 mg 03/16/20 09:00 03/17/20 08:01 Wellbutrin-Sr (12hr) PO 400 mg QAM JEREMY Administration Buspirone HCl 30 mg 03/16/20 09:00 03/17/20 08:01 Buspar PO 30 mg QAM JEREMY Administration Diazepam 5 mg 03/15/20 11:12 Valium Po PO Q8H PRN Spasms Diphenhydramine HCl 25 mg 03/15/20 11:12 Benadryl Inj IV PUSH Q6H PRN Itching Docusate Sodium 100 mg 03/15/20 17:00 03/17/20 08:01 Colace Capsule PO 100 mg BID JEREMY Administration Donepezil HCl 10 mg 03/16/20 09:00 03/17/20 08:02 Aricept PO 10 mg QAM JEREMY Administration Duloxetine HCl 60 mg 03/16/20 09:00 03/17/20 08:04 Cymbalta PO 60 mg DAILY JEREMY Administration Loratadine 10 mg 03/16/20 09:00 03/17/20 08:02 Claritin PO 04/15/20 09:01 10 mg DAILY JEREMY Administr
[2020-03-17] MEDS: RIVAROXABAN 10 MG TABLET PO (17:48)
[2020-03-17 20:00] VITALS: BP 119/54; PULSE 98; RESP 20; TEMP 36.8; O2SAT 97
[2020-03-18] MEDS: oxyCODONE/ACETAMINOPHEN (*CRX) 5-325 MG TABLET 1 TABLET PO ×3 (00:56→12:41)
[2020-03-18 04:00] VITALS: BP 107/48; PULSE 88; RESP 18; TEMP 36.6; O2SAT 99
[2020-03-18] MEDS: VITAMIN E 400 UNIT CAPSULE PO (08:43)
[2020-03-18] MEDS: busPIRone HCL 10 MG TABLET 30 MG PO (08:43)
[2020-03-18] MEDS: buPROPion HCL SR (12HR) 100 MG TABCR 400 MG PO (08:43)
[2020-03-18] MEDS: DULoxetine HCL 60 MG CAPSULE.DR PO (08:44)
[2020-03-18] MEDS: DONEPEZIL HCL 10 MG TABLET PO (08:44)
[2020-03-18] MEDS: LORATADINE 10 MG TABLET PO (08:44)
[2020-03-18] MEDS: ZINC SULFATE 220 MG CAPSULE PO (08:44)
[2020-03-18] MEDS: DOCUSATE SODIUM 100 MG CAPSULE PO (08:54)
--- NOTE | 2020-03-18 12:45 | PM.PNORT ---
Progress Note: A&P Assessment and Plan (1) Status post total right knee replacement: Code(s): Z96.651 - Presence of right artificial knee joint Status: Acute Assessment and Plan: Postoperative day 3. . Patient doing better today. Would like to go home. She has home health in place. She has a cool therapy well as CPM machine. Reviewed list of concerns for the patient family to be aware of. Follow-up Dr. Grant 3 weeks. Subjective Subjective Date/Time Seen: 03/18/20 12:45 Patient awake and alert. No new complaints. States feeling better today. Exam Const: General: comfortable and no acute distress Resp: Effort & Inspection: normal respiratory effort Cardio: Rate: regular rate Rhythm: regular rhythm GI: Inspection: non-distended Skin: Wounds: wounds noted (incision c/d/i. ) Neuro: General: No gait normal (antalgic ) Cognition (Neuro): normal cognition Motor exam (neuro): strength not 5/5 throughout Sensory Exam: normal sensation Extrem: Right lower extremity: normal capillary refill, knee (right knee TKA incision c/d/i. ) Details: tenderness (diffuse ) and swelling (moderate), lower leg (Negative Sriram's Sign ), ankle (+ankle dorsiflexion/plantarflexion .) and foot (2+ pedal pulses. Sensation intact to light touch. Mild swelling foot.) Details: vascular exam Details: dorsalis pedis pulse present, posterior tibial pulse present and normal capillary refill and motor-sensory exam Details: light-touch normal Location: in all toes Objective Data Vital Signs Vital Signs: Vital Signs - 24 hr 03/17/20 14:00 03/17/20 20:00 03/18/20 04:00 Temperature 97.9 F 98.3 F 98 F Pulse Rate 100 98 88 Respiratory Rate 14 20 18 Blood Pressure 132/64 119/54 L 107/48 L Pulse Oximetry 98 97 99 Intake/Output Intake/Output: Intake & Output 03/15/20 03/16/20 03/17/20 03/18/20 23:59 23:59 23:59 23:59 Intake Total 2340 2320 2120 980 Output Total 397 319 7938 Balance 2060 1920 570 980 Meds/Results Medications: Active Medications Generic Name Dose Route Start Last Admin Trade Name Freq PRN Reason Stop Dose Admin Acetaminophen 1,000 mg 03/15/20 11:12 Tylenol Tablet PO Q6H PRN Mild Pain (1-3) Bupropion HCl 400 mg 03/16/20 09:00 03/18/20 08:43 Wellbutrin-Sr (12hr) PO 400 mg QAM JEREMY Administration Buspirone HCl 30 mg 03/16/20 09:00 03/18/20 08:43 Buspar PO 30 mg QAM JEREMY Administration Diazepam 5 mg 03/15/20 11:12 Valium Po PO Q8H PRN Spasms Diphenhydramine HCl 25 mg 03/15/20 11:12 Benadryl Inj IV PUSH Q6H PRN Itching Docusate Sodium 100 mg 03/15/20 17:00 03/18/20 08:54 Colace Capsule PO 100 mg BID JEREMY Administration Donepezil HCl 10 mg 03/16/20 09:00 03/18/20 08:44 Aricept PO 10 mg QAM JEREMY Administration Duloxetine HCl 60 mg 03/16/20 09:00 03/18/20 08:44 Cymbalta PO 60 mg DAILY JEREMY Administration Loratadine 10 mg 03/16/20 09:00 03/18/20 08:44 Claritin PO 04/15/20 09:01 10 mg DAILY JEREMY Administration Magnesium Gluconate 54 mg 03/15/20 17:00 03/18/20 08:44 Magonate PO 04/14/20 17:01 54 mg BID JEREMY Administration Morphine Sulfate 4 mg 03/15/20 11:12 03/17/20 06:17 Morphine Sulfate Inj (*Crx) IV PUSH 4 mg Q2H PRN Administration Breakthrough pain rated 7-10 Naloxone HCl 0.1 mg 03/15/20 11:12 Narcan IV PUSH Q2M PRN Opiate Reversal Olopatadine HCl 1 drop 03/15/20 18:29 Patanol 0.1% Ophth Soln EACH EYE PRN PRN Allergy Symptoms Ondansetron HCl 4 mg 03/15/20 11:12 Zofran Inj IV PUSH Q4H PRN Nausea And Vomiting Oxycodone/Acetaminophen 1 tablet 03/15/20 11:12 03/18/20 12:41 Percocet 5-325 Mg PO 1 tablet Q4H PRN Administration Pain Rated 4-6 Rivaroxaban 10 mg 03/15/20 17:00 03/17/20 17:48 Xarelto PO 03/26/20 17:01 10 mg DAILY@17 JEREMY Administration Vitamin E 400 unit 03/15
--- NOTE | 2020-03-18 13:00 | PM.IMPN ---
Progress Note: A&P Assessment and Plan (1) Status post total right knee replacement: Code(s): Z96.651 - Presence of right artificial knee joint Status: Acute Assessment and Plan: DVT prophylaxis per Dr. Grant patient is on Xarelto and has bilateral SCDs. She has Miah wrap to her right knee. Postop care per Dr. Grant. 03/18/20 13:00 Patient is 70-year-old female with a history of severe arthritis in right knee had been seen by orthopedic surgeon and conservative management failed and on 03/15 patient was taken to OR and had a right knee total arthroplasty, today patient states the pain in the right knee is better, was able to to participate in physical therapy, believes she is ready to go home, she is seen by her surgeon and will be discharged today. denies any complaints of abdominal pain nausea or vomiting fever or chills, (2) Dementia: Code(s): F03.90 - Unspecified dementia without behavioral disturbance Status: Acute Assessment and Plan: Continue with Aricept. (3) Depression: Qualifiers: Depression Type: unspecified Qualified Code(s): F32.9 - Major depressive disorder, single episode, unspecified Code(s): F32.9 - Major depressive disorder, single episode, unspecified Status: Chronic Assessment and Plan: Continue Cymbalta. She is also on BuSpar (4) Anxiety: Code(s): F41.9 - Anxiety disorder, unspecified Status: Chronic Assessment and Plan: Continue with Cymbalta. Subjective Date/time seen: 03/18/20 13:00 Patient is 70-year-old female with a history of severe arthritis in right knee had been seen by orthopedic surgeon and conservative management failed and on 03/15 patient was taken to OR and had a right knee total arthroplasty, today patient states the pain in the right knee is better, was able to to participate in physical therapy, believes she is ready to go home, she is seen by her surgeon and will be discharged today. denies any complaints of abdominal pain nausea or vomiting fever or chills, Review of Systems Review of Systems: All systems reviewed & are unremarkable except as noted in HPI and below Exam Const: General: comfortable and no acute distress HENMT: General nose exam: Normal nares present Eyes: Sclera: sclerae normal Neck: Neck: supple Resp: Effort & Inspection: normal respiratory effort Auscultation: clear to auscultation bilaterally Cardio: Rate: regular rate Rhythm: regular rhythm GI: Auscultation: normal bowel sounds Skin: General skin exam: normal color Neuro: Speech: normal speech Sensory Exam: normal sensation Extrem: Other: right knee in wound dressing Psych: Affect: Anxious affect present Objective Data Vital Signs Vital Signs: Vital Signs - 24 hr 03/17/20 14:00 03/17/20 20:00 03/18/20 04:00 Temperature 97.9 F 98.3 F 98 F Pulse Rate 100 98 88 Respiratory Rate 14 20 18 Blood Pressure 132/64 119/54 L 107/48 L Pulse Oximetry 98 97 99 Intake/Output Intake/Output: Intake & Output 03/15/20 03/16/20 03/17/20 03/18/20 23:59 23:59 23:59 23:59 Intake Total 2340 2320 2120 980 Output Total 095 248 7496 Balance 2060 1920 570 980 Meds/Results Medications: Active Medications Generic Name Dose Route Start Last Admin Trade Name Freq PRN Reason Stop Dose Admin Acetaminophen 1,000 mg 03/15/20 11:12 Tylenol Tablet PO Q6H PRN Mild Pain (1-3) Bupropion HCl 400 mg 03/16/20 09:00 03/18/20 08:43 Wellbutrin-Sr (12hr) PO 400 mg QAM JEREMY Administration Buspirone HCl 30 mg 03/16/20 09:00 03/18/20 08:43 Buspar PO 30 mg QAM JEREMY Administration Diazepam 5 mg 03/15/20 11:12 Valium Po PO Q8H PRN Spasms Diphenhydramine HCl 25 mg 03/15/20 11:12 Benadryl Inj IV PUSH Q6H PRN Itching Docusate Sodium 100 mg 03/15/20 17:00 03/18/20 08:54 Colace Capsule PO 100 mg BID JEREMY Administr
== END 2020-03-18 13:05 | disposition home health service (06) ==
LOC: ANHSURGERY 12:58 → ANH2MED 12:58
PROVIDERS: Family Medicine; Admitting Provider Orthopaedic Surgery; PCP Family Medicine; Visit Provider Orthopaedic Surgery
PROC: (CPT 27447; principal; 2020-03-15 07:30)
DX: M17.0 Bilateral primary osteoarthritis of knee (principal); M25.562 Pain in left knee; M25.561 Pain in right knee; F03.90 Unspecified dementia, unspecified severity, without behavioral disturbance, psychotic disturbance, mood disturbance, and anxiety; E78.5 Hyperlipidemia, unspecified; M85.89 Other specified disorders of bone density and structure, multiple sites; E55.9 Vitamin D deficiency, unspecified; F41.8 Other specified anxiety disorders; E66.01 Morbid (severe) obesity due to excess calories; Z68.39 Body mass index [BMI] 39.0-39.9, adult; Z87.891 Personal history of nicotine dependence; Z98.84 Bariatric surgery status; Z23 Encounter for immunization
CPT/HCPCS: 27447; 36415; 73560; 80048; 80053; 83735; 85025; 85027; 90471; 90653; 93005; 97110; 97116; 97161; 97165; 97530; 97535; A9270; C1713; C1776; G0008; G0378; J0171; J0360; J0690; J1100; J1170; J2270; J2405; J2704; J2795; J3010; J3370; J7030; J7120

== ENCOUNTER 2020-09-11 13:50 | Outpatient (CLI) | payer MEDICARE, SELFPAY ==
--- NOTE | ~2020-09-11 | DEXA_ITS ---
Bone Density Report Name: Claire Fuller Age: 70 Sex: Female Ethnicity: White Date of : 1950 Indication: osteopenia; Referring Provider: Shanae Kwan Study: Bone densitometry was performed. Exam Date: September 11, 2020 Accession number: [id number] Bone Density: Region BMD T-score Z-score Classification AP Spine (L1-L4) 0.914 -1.2 0.9 Osteopenia Femoral Neck (Left) 0.597 -2.3 -0.4 Osteopenia Total Hip (Left) 0.734 -1.7 -0.2 Osteopenia Total Hip Bilateral Avg 0.727 -1.8 -0.3 Osteopenia Femoral Neck (Right) 0.642 -1.9 0.0 Osteopenia Total Hip (Right) 0.719 -1.8 -0.3 Osteopenia World Health Organization criteria for BMD impression classify patients as: Normal (T-score at or above -1.0), Osteopenia (T-score between -1.0 and -2.5), or Osteoporosis (T-score at or below -2.5). 10-year Fracture Risk(1): Major Osteoporotic Fracture 12% Hip Fracture 2.5% Reported Risk Factors: [place] (), Neck BMD=0.597, BMI=38.6 (1) FRAX(R) Version 3.08. Fracture probability calculated for an untreated patient. Fracture probability may be lower if the patient has received treatment. Previous Exams: Region Exam Age BMD T-score BMD Change BMD Change Date g/cm2 vs Baseline vs Previous AP Spine(L1-L4) 09/11/2020 70 0.914 -1.2 0.048(5.5%)* 0.048(5.5%)* 05/14/2016 66 0.866 -1.6 Total Hip(Left) 09/11/2020 70 0.734 -1.7 -0.007(-0.9%) -0.007(-0.9%) 05/14/2016 66 0.741 -1.7 Total Hip(Right) 09/11/2020 70 0.719 -1.8 0.003(0.3%) 0.003(0.3%) 05/14/2016 66 0.717 -1.8 *Denotes significance at 95% confidence level, LSC for AP Spine = 0.022 g/cm2, LSC for Total Hip = 0.027 g/cm2 Clinical Information Provided by Patient: Has used the following medications: Calcium Patient maximum height was 68 Menopause Age: 52 No regular weight bearing exercise Drinks caffeinated beverages Onset of menses at age 13 Number of children 3 Impression: The patient has low bone mass, based on the Left Femoral Neck T-score. The patient has an estimated ten-year risk of hip fracture of 2.5% and an estimated ten-year risk of major fracture of 12%, based on the WHO FRAX algorithm. No significant bone loss was observed. Discussion: BONE DENSITY IS LOW AT ONE OR MORE SKELETAL SITES. This patient's lowest T-score is low at one or more skeletal sites. It meets the World Health Organization's (WHO) criteria for ?low bone mass? (T-score between -1.0 and
== END 2020-09-11 13:51 | disposition home or self-care (01) ==
LOC: ANHIMG 13:52
PROVIDERS: PCP Family Medicine; Visit Provider Family Medicine
DX: M85.89 Other specified disorders of bone density and structure, multiple sites (principal); Z78.0 Asymptomatic menopausal state
CPT/HCPCS: 77080

== ENCOUNTER 2020-10-10 08:40 | Outpatient (CLI) | payer MEDICARE, SELFPAY ==
--- NOTE | ~2020-10-10 | MM_ITS ---
EXAMINATION: MM screening cheryl BI w royce HISTORY: Screening mammogram TECHNIQUE: Craniocaudal and mediolateral oblique 3-D tomosynthesis images were obtained and synthetic 2-D images were generated. CAD analysis was submitted and interpreted. COMPARISON: 04/2019, 04/15/2018 bilateral digital screening mammogram examinations BREAST PARENCHYMAL COMPOSITION: There are scattered areas of fibroglandular density. FINDINGS: There are 2 biopsy markers on the left; history of prior benign left breast biopsies. Scatt ered bilateral benign occasional calcifications. There is no evidence of suspicious mass, calcificati on, or architectural distortion to suggest malignancy in either breast. There has been no suspicious interval change. IMPRESSION: 1. No mammographic evidence of malignancy. 2. Recommend routine screening mammography in one year. BI-RADS Category 2: Benign finding(s). Reviewed, dictated and finalized at location A.
== END 2020-10-10 08:41 | disposition home or self-care (01) ==
LOC: ANHIMG 08:43
PROVIDERS: PCP Family Medicine; Visit Provider Family Medicine
DX: Z12.31 Encounter for screening mammogram for malignant neoplasm of breast (principal)
CPT/HCPCS: 77063; 77067

== ENCOUNTER 2021-04-17 11:24 | Outpatient (CLI) | payer MEDICARE, SELFPAY ==
[2021-04-17 12:00] LABS: Basophils Absolute Auto 0.1 K/mm3 (0.0-0.1); Eosinophils Absolute Auto 0.1 K/mm3 (0-0.3); Eosinophils Percent Auto 1.4 % (0-4.4); Hematocrit 34.2 % (37.0-47.0); Immature Granulocyte Absolute 0.02 K/mm3 (0.00-0.031); Immature Granulocyte Percent A 0.2 % (0-0.5); Lymphocytes Absolute Auto 0.72 K/mm3 (0.9-3.2); Lymphocytes Percent Auto 8.9 % (18.3-44.2); Mean Corpuscular HGB Conc 32.2 g/dl (32-36); Mean Corpuscular Hemoglobin 27.8 pg (26-34); Mean Corpuscular Volume 86.4 fl (80-100); Mean Platelet Volume 9.5 fl (7.4-10.4); Monocytes Absolute Auto 1.1 K/mm3 (0.1-0.6); Neutrophils Absolute Auto 6.1 K/mm3 (1.3-6.7); Neutrophils Percent Auto 75.5 % (45.5-73.1); Platelet Count Result 443 k/mm3 (150-375); Red Blood Count 3.96 M/mm3 (4.2-5.4); Red Cell Distribution Width 16.8 % (11.5-14.5); White Blood Count 8.1 K/mm3 (4.5-10.0)
[2021-04-17 12:17] LABS: INR 1.1; Prothrombin Time 13.8 Seconds (11.1-14.7)
[2021-04-17 12:20] LABS: Partial Thromboplastin Time 34.2 SECONDS (22.3-36.8)
== END 2021-04-17 11:25 | disposition home or self-care (01) ==
LOC: ANHSURGERY 11:29
PROVIDERS: PCP Family Medicine; Visit Provider Surgery
DX: Z01.818 Encounter for other preprocedural examination (principal); C54.1 Malignant neoplasm of endometrium
CPT/HCPCS: 36415; 85025; 85610; 85730

== ENCOUNTER 2021-04-19 00:45 | Day surgery (SDC) | payer MEDICARE, SELFPAY ==
[2021-04-16 14:39] VITALS: BMI 36.5
--- NOTE | 2021-04-16 15:05 | PC.NURSE ---
Report to the Outpatient Waiting Room, entrance under the green pavilion located off [facility], at time ___12:00PM___ on date ____04/19/21___. OR Time: 2:00PM___. - You and your visitor will be asked a series of questions to screen for COVID 19 for your protection. - A mask is required within the hospital. - Only one visitor is allowed at this time. Patient visitors will be guided where to wait when not with patient. Preoperative COVID Testing Requirements: No COVID Test needed if: (proof is required; if not received patient will have Rapid Test prior to entry) - Patient has received COVID Vaccine at least 14 days prior to procedure date or - Patient has positive COVID test result within last 90 days of surgery date. COVID Test needed if above criteria is not met If not COVID vaccinated a COVID test must be conducted within 72 hours of surgery and patient is asked to isolate self from time of testing until procedure. You will go to the [facility] for your COVID testing. The [facility] is located at the corner of [address] [facility]. You will only be called if COVID results are positive and your surgeon may reschedule your elective surgery date. Patients may have clear liquids (water, carbonated beverages, clear teas, apple juice) until 3 hours prior to surgery with a maximum of 20 ounces. - No food from midnight until time of surgery - Infants may have breast milk until 4 hours before surgery, infant formula 6 hours prior to surgery. - Children will be allowed to drink immediately following surgery. If applicable, please bring a bottle or sippy cup to assist with drinking. Juice, water, soda, and popsicles are readily available. For infants on formula, please bring formula the day of surgery. Pacifiers are allowed. Take the following medications with a SIP of water the morning of surgery: ___BUPROPION, BUSPIRONE Medications to discontinue per physician ALL VITAMINS/SUPPLEMENTS 3 DAYS PRE-OP Date to take last dose____04/16/21 Please no make-up, nail comoran, hairspray, perfume, deodorant, or body powder the day of surgery. No jewelry (including any body piercings) or valuables the day of surgery, leave them at home. Please take a shower or bath the night before, or the morning of, surgery with an antibacterial soap. Wear comfortable, loose fitting clothing. Children are encouraged to wear pajamas. - Jewelry must be removed prior to entering the operating room. Rings and piercings that are not removed may be cut off. - The hospital will not accept responsibility for valuables. - Please leave all valuables, including medications, at home the day of surgery. If you are going home after surgery, a licensed tanker truck driver must drive you home. - NO public transportation without another adult. - We recommend that an adult stay with you for 24 hours following discharge. - We also recommend that you do not drive, make important decision, drink alcoholic beverages, or take any drugs that were not prescribed by your health care provider for at least 24 hours after your discharge time. For Pediatric surgeries, we recommend two adults accompany the child home (only one inside the building at this time). Follow any additional instructions given to you from your surgeon. Telephone instructions given to __PATIENT-CHARBEL and asked if any additional questions and then verbalized understanding. Patient advised to call surgeon office or pre surgery nurse liaison [phone] if any additional questions.
--- NOTE | ~2021-04-19 | XR_ITS ---
EXAMINATION: XR fl guide central line place DATE: 04/19/2021 14:48 INDICATION: Port catheter insertion TECHNIQUE: Single frontal view of the upper chest was obtained during procedure performed by Dr. Jayme acuna. Radiologist was not present for the imaging or procedure. The amount of fluoroscopy time used duri ng this procedure was 0.2 minutes. COMPARISON: None. FINDINGS: Left subclavian central venous port catheter which extends into the caudal superior vena cava with di stal tip collimated beyond the inferior margin of the [id number]. Visualized portions of the upper lung zones are clear with no pneumothorax. IMPRESSION: 1. Left subclavian central venous port catheter extending at least to the caudal superior vena cava w ith distal tip extending beyond the [id number]. See procedure note for further detail. Reviewed, dictated and finalized at location A. IMPRESSION: 1. Left subclavian central venous port catheter extending at least to the cauda l superior vena cava with distal tip extending beyond the [id number]. See pr ocedure note for further detail.
--- NOTE | ~2021-04-19 | XR_ITS ---
EXAMINATION: XR chest port-a-cath/central INDICATION: Port-A-Cath insertion TECHNIQUE: Portable AP chest at 1521 hours COMPARISON: None available FINDINGS: A left subclavian Port-A-Cath with its tip in the proximal right atrium. The lungs are free of acute opacities. There is no pleural effusion or pneumothorax. The cardiomediastinal silhouette i s normal. Surgical clips in the right upper quadrant are likely from prior cholecystectomy. IMPRESSION: 1. Left subclavian Port-A-Cath ending in the proximal right atrium. No pneumothorax. Reviewed, dictated and finalized at location B. IMPRESSION: 1. Left subclavian Port-A-Cath ending in the proximal right atrium. No pneumoth orax.
[2021-04-19 12:53] VITALS: BMI 37.8
[2021-04-19] MEDS: LACTATED RINGERS 1,000 ML 30 ML IV CONT (12:59)
[2021-04-19] MEDS: KETOROLAC 15 MG/ML VIAL (*BKC) IV PUSH (13:45)
--- NOTE | 2021-04-19 13:51 | PM.IMHP ---
H&P: HPI History of Present Illness Date/Time: 04/19/21 13:51 Pt is a 71 y/o F presenting for port placement. Pt recently dx'd c metastatic endometrial cancer and will need access for adjuvant therapy. Pt is right handed and denies previous central venous catheterizations. Chief Complaint: metastatic endometrial cancer Review of Systems Review of Systems: All systems reviewed & are unremarkable except as noted in HPI and below PMFSH Past Medical History Medical History Anxiety Chronic renal insufficiency Depression Dry mouth Dyslipidemia Environmental allergies Left breast mass Mild cognitive impairment Morbid obesity Osteoarthritis Osteopenia Seasonal allergies Vision abnormalities Vitamin D deficiency Weight gain Surgical History Surgical History H/O breast biopsy (~2016) benign x2 in the left breast H/O rectal polypectomy (~2009) History of bariatric surgery (~2010) History of cataract surgery (~2018) bilaterally Hx of cholecystectomy (~1997) Status post total right knee replacement (~03/15/20) 03/15/20 Family History Family History Mother Depression Atrial fibrillation Father COPD (chronic obstructive pulmonary disease) Other Family history of Alzheimer's disease Family history of atrial fibrillation Social History Social History Social History: the patient desires to have her Ednny as her durable power contract attorney if he is unable to do it then her children. She has 3 children. She is a full code. 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 Former smoker. Occasionally has a drink at night just once a day. But not every day. Smoking packs per day: 0.5 Smoking cigarettes per day: 10.0 Years smoked: 15 Smoking pack-years: 7.50 Smoking status: Former smoker Tobacco type: cigarettes Second hand tobacco smoke exposure: No Smoking end date: 12/14/84 Additional smoking assessment comments: 1 PACK/WEEK X 19 YEARS Alcohol intake: current Drinks per week: 7 Alcohol use details: WINE Substance use: never Substance use type: does not use Living arrangements: with family Additional living arrangements comments: HUSB Gender identity (if verbalized by the patient): Female Spiritual care concerns: No Meds Home Medications and Allergies Home Medications Medication Instructions Recorded Confirmed Type cholecalciferol (vitamin D3) 125 125 mcg PO DAILY 09/20/19 04/16/21 History mcg (5,000 unit) capsule donepezil 10 mg tablet 10 mg PO QAM 09/20/19 04/16/21 History biotin 10 mg tablet 10 mg PO DAILY 02/15/20 04/16/21 History duloxetine 60 mg capsule,delayed 60 mg PO QPM 02/15/20 04/16/21 History release sprinkle folic acid 800 mcg tablet 0.8 mg PO DAILY 02/15/20 04/16/21 History magnesium citrate 100 mg tablet 1,000 mg PO DAILY 02/15/20 04/16/21 History mecobalamin (vitamin B12) 500 mcg PO QAM 02/15/20 04/16/21 History omega-3 fatty acids 1,000 mg 1,000 mg PO DAILY 02/15/20 04/16/21 History capsule zinc 50 mg PO DAILY 02/15/20 04/16/21 History bupropion HCl 400 mg PO QAM 03/06/20 04/16/21 History calcium carbonate-vitamin D3 1,000 1 tablet PO DAILY #30 tablet 09/12/20 04/16/21 Rx mg (2,500 mg)-800 unit tablet buspirone 10 mg PO QAM 04/16/21 04/16/21 History glucos sul [id number] 1 cap PO DAILY 04/16/21 04/16/21 History [Glucosamine Chondroitin] vitamin E 1 tablet PO BID 04/16/21 04/16/21 History Allergies Allergy/AdvReac Type Severity Reaction Status Date / Time No Known Allergies Allergy Verified 04/16/21 14:31 Exam Const: General: cooperative, comfortable, no acute distress and ill appearing Nutritional Appearance: obese Orientation/consciousness: patient oriented x3 Limita
--- NOTE | 2021-04-19 14:00 | WPDHPUPDATE1 ---
History and Physical Update Update Date/Time: 04/19/21 14:00 History and Physical has been reviewed, including an updated exam of the patient. There are NO changes in the patient's condition. Risks, benefits, and alternatives have been discussed and questions answered. Patient agrees to proceed with procedure.
--- NOTE | 2021-04-19 14:10 | WPDANESEPPF ---
Anes - Initial Pre Proc Eval Procedure: Operation Date: 04/19/21 14:00 Proposed Procedures p Insertion Juan Manuel Cath - Rashmi Aguirre MD Date/Time: 04/19/21 14:10 Surgeon: Rashmi Aguirre MD Pre Op Diagnosis: endometrial CA Patient Data Age: 71 Gender: F Height: 1.73 m Weight: 113 kg Allergies Allergy/AdvReac Type Severity Reaction Status Date / Time No Known Allergies Allergy Verified 04/16/21 14:31 Home Medications Medication Instructions Recorded Confirmed Type cholecalciferol (vitamin D3) 125 125 mcg PO DAILY 09/20/19 04/16/21 History mcg (5,000 unit) capsule donepezil 10 mg tablet 10 mg PO QAM 09/20/19 04/16/21 History biotin 10 mg tablet 10 mg PO DAILY 02/15/20 04/16/21 History duloxetine 60 mg capsule,delayed 60 mg PO QPM 02/15/20 04/16/21 History release sprinkle folic acid 800 mcg tablet 0.8 mg PO DAILY 02/15/20 04/16/21 History magnesium citrate 100 mg tablet 1,000 mg PO DAILY 02/15/20 04/16/21 History mecobalamin (vitamin B12) 500 mcg PO QAM 02/15/20 04/16/21 History omega-3 fatty acids 1,000 mg 1,000 mg PO DAILY 02/15/20 04/16/21 History capsule zinc 50 mg PO DAILY 02/15/20 04/16/21 History bupropion HCl 400 mg PO QAM 03/06/20 04/16/21 History calcium carbonate-vitamin D3 1,000 1 tablet PO DAILY #30 tablet 09/12/20 04/16/21 Rx mg (2,500 mg)-800 unit tablet buspirone 10 mg PO QAM 04/16/21 04/16/21 History glucos sul [id number]-C-Mn 1 cap PO DAILY 04/16/21 04/16/21 History [Glucosamine Chondroitin] vitamin E 1 tablet PO BID 04/16/21 04/16/21 History Patient hx anesthesia problems: none Family hx anesthesia problems: none Results Review: All pre-operative results and documents have been reviewed as part of the pre-operative evaluation. [facility] Past Medical History Medical History Anxiety Chronic renal insufficiency Depression Dry mouth Dyslipidemia Environmental allergies Left breast mass Mild cognitive impairment Morbid obesity Osteoarthritis Osteopenia Seasonal allergies Vision abnormalities Vitamin D deficiency Weight gain Surgical History Surgical History H/O breast biopsy (~2016) benign x2 in the left breast H/O rectal polypectomy (~2009) History of bariatric surgery (~2010) History of cataract surgery (~2018) bilaterally Hx of cholecystectomy (~1997) Status post total right knee replacement (~03/15/20) 03/15/20 Family History Family History Mother Depression Atrial fibrillation Father COPD (chronic obstructive pulmonary disease) Other Family history of Alzheimer's disease Family history of atrial fibrillation Social History Social History Social History: the patient desires to have her Denny as her durable power erisa attorney if he is unable to do it then her children. She has 3 children. She is a full code. 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 Former smoker. Occasionally has a drink at night just once a day. But not every day. Smoking packs per day: 0.5 Smoking cigarettes per day: 10.0 Years smoked: 15 Smoking pack-years: 7.50 Smoking status: Former smoker Tobacco type: cigarettes Second hand tobacco smoke exposure: No Smoking end date: 12/14/84 Additional smoking assessment comments: 1 PACK/WEEK X 19 YEARS Alcohol intake: current Drinks per week: 7 Alcohol use details: WINE Substance use: never Substance use type: does not use Living arrangements: with family Additional living arrangements comments: LARRY Gender identity (if verbalized by the patient): Female Spiritual care concerns: No Anes - Eval Final PreProcedure Day of Procedure 04/19/21 14:10 Patient weight: obese Heart: regular rate and rhythm Lungs: phuc
[2021-04-19] MEDS: ceFAZolin 2 GM/D5W 50 ML 2 GM/50 ML BAG IVPB (14:16)
[2021-04-19] MEDS: BUPIVACAINE HCL 0.5% PF 30 ML VIAL 20 ML INFILTRATE (14:37)
[2021-04-19] MEDS: HEPARIN SODIUM 5,000 UNITS/ML VIAL 5000 UNITS IRRIGATION (14:38)
[2021-04-19] MEDS: HEPARIN SODIUM, PORCINE 10,000 UNITS/10 ML VIAL 2000 UNITS IV PUSH (14:39)
--- NOTE | 2021-04-19 15:06 | P.OP_ITS ---
Procedure Note - Detailed Date of Procedure 04/19/21 Pre-op Diagnosis endometrial CA Post-op Diagnosis same Procedure Performed Placement of left subclavian venous access device under fluoroscopic guidance Surgeon Rashmi Aguirre MD Anesthesia MAC and local Indications 71-year-old female with metastatic endometrial cancer presenting for access for neoadjuvant therapy Findings 1st stick left subclavian vein Description of Procedure Patient was brought into the operating room and placed in the supine position. After adequate induction of mac anesthesia, the patient was prepped and draped in normal sterile fashion. Time-out was then done to verify the patient's identity, as well as the procedure being performed. I began by making a small incision in the left chest, I then gained access into the left subclavian vein with an 18 gauge needle. I then placed the guidewire into the vein and confirmed placement via fluoroscopic guidance. I then locally anesthetized the area in the left chest. I then enlarged the incision around the guidewire including making a subcutaneous pocket inferiorly to allow placement of the port itself. I then placed a dilating sheath over the guidewire into the left s ubclavian vein via sterile Seldinger technique. This was once again done and confirmed via fluoroscopic guidance. I then removed the dilator and the guidewire, now just leaving the sheath in the vein. I then fed the previously flushed catheter into the left subclavian vein under fluoroscopic guidance. At approximately 20 cm, the catheter was noted to be near the atrial caval junction. I then peeled away the sheath, now just leaving the catheter in the vein. I then was able to easily draw and flush from the catheter. The catheter was cut to fit and attached to the port itself. The port was placed into the previously made subcutaneous pocket and sutured in with 0 Ethibond suture. Final fluoroscopic view showed the termination of the catheter at the atrial caval junction with a nice smooth curvature back to the port itself. I was able to gain access to the port with a Vega needle and was able to easily draw and flush from the port. I then flushed 4 cc of a final heparin flush into the port. The incision was closed with 3 0 Vicryl suture in the subcutaneous tissue and the skin was closed with 4 O Monocryl subcuticular suture. Dermabond was then placed on wound. The patient tolerated the procedure well and will be sent to the recovery room in stable condition. Implants L SCV VAD Estimated Blood Loss 5 Drains No Packing No Pathology none sent Complications No immediate complications Condition stable Disposition PACU
[2021-04-19 15:09] VITALS: BP 145/74; PULSE 81; RESP 12; O2SAT 94
[2021-04-19 15:40] VITALS: BP 131/74; PULSE 76
[2021-04-19 16:10] VITALS: BP 136/74; PULSE 72
== END 2021-04-19 16:30 | disposition home or self-care (01) ==
PROVIDERS: PCP Family Medicine; Visit Provider Surgery
PROC: (CPT 36561; principal; 2021-04-19 14:00)
DX: C54.1 Malignant neoplasm of endometrium (principal); N18.9 Chronic kidney disease, unspecified; E78.5 Hyperlipidemia, unspecified; F41.8 Other specified anxiety disorders; E55.9 Vitamin D deficiency, unspecified; Z87.891 Personal history of nicotine dependence; E66.9 Obesity, unspecified; Z68.37 Body mass index [BMI] 37.0-37.9, adult
CPT/HCPCS: 36561; 36415; 77001; 85025; 85610; 85730; C1788; J0690; J1100; J1644; J1885; J2405; J2704; J3010; J7030; J7120

== ENCOUNTER 2021-05-01 14:04 | Emergency (ER) | payer MEDICARE, SELFPAY ==
[2021-05-01 14:07] VITALS: BP 145/78; PULSE 99; RESP 22; TEMP 35.8; O2SAT 98
[2021-05-01 14:29] LABS: Hematocrit 36.2 % (37.0-47.0); Hemoglobin 11.9 g/dL (12.0-15.0); Mean Corpuscular HGB Conc 32.9 g/dl (32-36); Mean Corpuscular Hemoglobin 27.9 pg (26-34); Mean Platelet Volume 9.9 fl (7.4-10.4); Platelet Count Result 412 k/mm3 (150-375); Red Blood Count 4.26 M/mm3 (4.2-5.4); Red Cell Distribution Width 16.2 % (11.5-14.5); White Blood Count 34.6 K/mm3 (4.5-10.0)
[2021-05-01 14:37] LABS: Alanine Aminotransferase 18 U/L (4-35); Alkaline Phosphatase 90 U/L (38-126); Anion Gap 7 mmol/L (8-16); Aspartate Amino Transferase 40 U/L (14-36); Bilirubin,Total 0.7 mg/dL (0.2-1.3); Blood Urea Nitrogen 17 mg/dL (7-17); Calcium 8.7 mg/dL (8.4-10.2); Carbon Dioxide 26 mmol/L (22-30); Chloride 100 mmol/L (98-107); Estimated CRCL calculation 73 ml/min; Estimated Glomerular Filt Rate > 60; Glucose 114 mg/dL (65-110); Lipase 47 U/L (23-300); Potassium 4.2 mmol/L (3.4-5.0); Sodium 133 mmol/L (137-145)
[2021-05-01 14:56] LABS: Band Neutrophils Percent 3 % (0-6); Lymphocytes Absolute Manual 0.34 K/mm3 (1.1-4.5); Monocytes Absolute Manual 1.38 K/mm3 (0.1-0.90); Monocytes Percent Manual 4 % (3-9); Neutrophils Absolute Manual 32.87 K/mm3 (1.7-7.2); Neutrophils Percent Manual 92 % (46-73); Platelet Estimate Increased (Adequate); Total Cells Counted 100
== END 2021-05-02 02:21 | disposition left against medical advice (07) ==
LOC: ANHED 14:43
PROVIDERS: Emergency Provider Emergency Medicine; PCP Family Medicine
DX: R10.9 Unspecified abdominal pain (principal)
CPT/HCPCS: 36415; 80053; 83690; 85025; 99199

== ENCOUNTER 2021-05-04 08:37 | Outpatient (CLI) | payer MEDICARE, SELFPAY ==
[2021-05-03 16:00] VITALS: BMI 38.0
--- NOTE | 2021-05-03 16:10 | PC.NURSE ---
Report to the Outpatient Waiting Room, entrance under the green pavilion located off [facility], at time _0830___ on date _05/04/21__. OR Time: ___09__. - You and your visitor will be asked a series of questions to screen for COVID 19 for your protection. - A mask is required within the hospital. - Only one visitor is allowed at this time. Patient visitors will be guided where to wait when not with patient. Preoperative COVID Testing Requirements: No COVID Test needed if: (proof is required; if not received patient will have Rapid Test prior to entry) - Patient has received COVID Vaccine at least 14 days prior to procedure date or - Patient has positive COVID test result within last 90 days of surgery date. COVID Test needed if above criteria is not met If not COVID vaccinated a COVID test must be conducted within 72 hours of surgery and patient is asked to isolate self from time of testing until procedure. You will go to the [facility] for your COVID testing. The [facility] is located at the corner of [address] [facility]. You will only be called if COVID results are positive and your surgeon may reschedule your elective surgery date. -NOTHING TO EAT OR DRINK 6 HOURS PRIOR TO PROCEDURE (0330) - Infants may have breast milk until 4 hours before surgery, infant formula 6 hours prior to surgery. - Children will be allowed to drink immediately following surgery. If applicable, please bring a bottle or sippy cup to assist with drinking. Juice, water, soda, and popsicles are readily available. For infants on formula, please bring formula the day of surgery. Pacifiers are allowed. Take the following medications with a SIP of water the morning of surgery: __AM MEDS SCHEDULED Medications to discontinue per physician NONE Date to take last dose Please no make-up, nail qatari, hairspray, perfume, deodorant, or body powder the day of surgery. No jewelry (including any body piercings) or valuables the day of surgery, leave them at home. Please take a shower or bath the night before, or the morning of, surgery with an antibacterial soap. Wear comfortable, loose fitting clothing. Children are encouraged to wear pajamas. - Jewelry must be removed prior to entering the operating room. Rings and piercings that are not removed may be cut off. - The hospital will not accept responsibility for valuables. - Please leave all valuables, including medications, at home the day of surgery. If you are going home after surgery, a licensed transit bus driver must drive you home. - NO public transportation without another adult. - We recommend that an adult stay with you for 24 hours following discharge. - We also recommend that you do not drive, make important decision, drink alcoholic beverages, or take any drugs that were not prescribed by your health care provider for at least 24 hours after your discharge time. For Pediatric surgeries, we recommend two adults accompany the child home (only one inside the building at this time). Follow any additional instructions given to you from your surgeon. Telephone instructions given to ___PT and asked if any additional questions and then verbalized understanding. Patient advised to call surgeon office or pre surgery nurse liaison [phone] if any additional questions.
--- NOTE | ~2021-05-04 | US_ITS ---
EXAMINATION: US paracentesis abd w/image DATE: 05/04/2021 10:26 INDICATION: Ascites. TECHNIQUE: The procedure and its risks, benefits, and alternatives were discussed with the patient. P otential risks discussed included bleeding and infection. The skin was prepped and draped in sterile fashion. 1% lidocaine was used for local anesthesia. Under ultrasound guidance, a 5 Fr catheter with trochar was advanced into the ascites in the left lower quadrant. Fluid was aspirated. The catheter w as removed, and a dressing was applied. There were no immediate complications. FINDINGS: Ultrasound images demonstrate ascites and the catheter within the fluid. IMPRESSION: 1. Successful ultrasound-guided paracentesis yielding 5000 mL of red-brown fluid. Reviewed, dictated and finalized at location A. STRY SUPERVISOR IMPRESSION: 1. Successful ultrasound-guided paracentesis yielding 5000 mL of red-brown flu id.
[2021-05-04 09:06] LABS: Mean Platelet Volume 10.2 fl (7.4-10.4); Platelet Count Result 336 k/mm3 (150-375)
[2021-05-04 09:07] VITALS: BP 109/72; PULSE 81; RESP 16; TEMP 36.3; O2SAT 97
[2021-05-04 09:25] LABS: INR 1.1; Prothrombin Time 13.7 Seconds (11.1-14.7)
== END 2021-05-04 08:38 | disposition home or self-care (01) ==
PROVIDERS: Radiology Diagnostic Radiology; PCP Family Medicine; Visit Provider Internal Medicine Hematology & Oncology
DX: R18.8 Other ascites (principal)
CPT/HCPCS: 36415; 49083; 85049; 85610

== ENCOUNTER 2021-05-16 13:00 | Outpatient (CLI) | payer MEDICARE, SELFPAY ==
--- NOTE | ~2021-05-16 | US_ITS ---
EXAMINATION: US paracentesis abd w/image DATE: 05/16/2021 13:55 INDICATION: Malignant ascites TECHNIQUE: The procedure and its risks and benefits were discussed with the patient. Potential risks discussed included bleeding and infection. The skin was prepped and draped in sterile fashion. 1% lid ocaine was used for local anesthesia. Under ultrasound guidance, a 5 Fr catheter with trochar was adv anced into the ascites in the left lower quadrant. Fluid was aspirated into vacuum bottles. The billie ter was removed, and a dressing was applied. There were no immediate complications. FINDINGS: Ultrasound images demonstrate ascites and the catheter within the fluid. IMPRESSION: 1. Successful ultrasound-guided paracentesis yielding 3500 mL of dark reddish fluid. Reviewed, dictated and finalized at location A. LOPE MACHINE ADJUSTER
== END 2021-05-16 13:01 | disposition home or self-care (01) ==
LOC: ANHIMG 13:00
PROVIDERS: PCP Family Medicine; Visit Provider Internal Medicine Hematology & Oncology
DX: R18.0 Malignant ascites (principal)
CPT/HCPCS: 49083

== ENCOUNTER 2021-05-25 08:16 | Outpatient (CLI) | payer MEDICARE, SELFPAY ==
--- NOTE | ~2021-05-25 | US_ITS ---
EXAMINATION: US paracentesis abd w/image DATE: 05/25/2021 09:42 INDICATION: Ascites. TECHNIQUE: The procedure and its risks, benefits, and alternatives were discussed with the patient. P otential risks discussed included bleeding and infection. The skin was prepped and draped in sterile fashion. 1% lidocaine was used for local anesthesia. Under ultrasound guidance, a 5 Fr catheter with trochar was advanced into the ascites in the left lower quadrant. Fluid was aspirated. The catheter w as removed, and a dressing was applied. There were no immediate complications. FINDINGS: Ultrasound images demonstrate ascites and the catheter within the fluid. IMPRESSION: 1. Successful ultrasound-guided paracentesis yielding 3550 mL of red-brown fluid. Reviewed, dictated and finalized at location A. ET DEVELOPMENT ANALYST IMPRESSION: 1. Successful ultrasound-guided paracentesis yielding 3550 mL of red-brown flu id.
== END 2021-05-25 08:17 | disposition home or self-care (01) ==
LOC: ANHIMG 08:17
PROVIDERS: PCP Family Medicine; Visit Provider Internal Medicine Hematology & Oncology
DX: R18.0 Malignant ascites (principal)
CPT/HCPCS: 49083

== ENCOUNTER 2021-05-31 09:13 | Outpatient (CLI) | payer MEDICARE, SELFPAY ==
--- NOTE | ~2021-05-31 | US_ITS ---
EXAMINATION: US paracentesis abd w/image DATE: 05/31/2021 09:59 INDICATION: Malignant ascites. TECHNIQUE: The procedure and its risks, benefits, and alternatives were discussed with the patient. P otential risks discussed included bleeding and infection. The skin was prepped and draped in sterile fashion. 1% lidocaine was used for local anesthesia. Under ultrasound guidance, a 5 Fr catheter with trochar was advanced into the ascites in the left lower quadrant. Fluid was aspirated. The catheter w as removed, and a dressing was applied. There were no immediate complications. FINDINGS: Ultrasound images demonstrate ascites and the catheter within the fluid. IMPRESSION: 1. Successful ultrasound-guided paracentesis yielding 1900 mL of red-brown fluid. Reviewed, dictated and finalized at location A. TBAND FLANGER IMPRESSION: 1. Successful ultrasound-guided paracentesis yielding 1900 mL of red-brown flu id.
== END 2021-05-31 09:14 | disposition home or self-care (01) ==
LOC: ANHIMG 09:17
PROVIDERS: PCP Family Medicine; Visit Provider Internal Medicine Hematology & Oncology
DX: C54.1 Malignant neoplasm of endometrium (principal); R18.0 Malignant ascites
CPT/HCPCS: 49083

== ENCOUNTER 2021-06-06 09:15 | Outpatient (CLI) | payer MEDICARE, SELFPAY ==
--- NOTE | ~2021-06-06 | US_ITS ---
EXAMINATION: US paracentesis abd w/image DATE: 06/06/2021 10:10 INDICATION: Ascites. TECHNIQUE: The procedure and its risks, benefits, and alternatives were discussed with the patient. P otential risks discussed included bleeding and infection. The skin was prepped and draped in sterile fashion. 1% lidocaine was used for local anesthesia. Under ultrasound guidance, a 5 Fr catheter with trochar was advanced into the ascites in the right lower quadrant. Fluid was aspirated. The catheter was removed, and a dressing was applied. There were no immediate complications. FINDINGS: Ultrasound images demonstrate ascites and the catheter within the fluid. IMPRESSION: 1. Successful ultrasound-guided paracentesis yielding 650 mL of red-brown fluid. Reviewed, dictated and finalized at location A. S PROCESS MANAGER IMPRESSION: 1. Successful ultrasound-guided paracentesis yielding 650 mL of red-brown flui d.
== END 2021-06-06 09:16 | disposition home or self-care (01) ==
LOC: ANHIMG 09:17
PROVIDERS: PCP Family Medicine; Visit Provider Internal Medicine Hematology & Oncology
DX: R18.0 Malignant ascites (principal)
CPT/HCPCS: 49083

== ENCOUNTER 2021-06-07 02:22 | Day surgery (SDC) | payer MEDICARE, SELFPAY ==
[2021-05-31 12:49] VITALS: BMI 38.0
--- NOTE | 2021-06-07 09:36 | WPDHPUPDATE1 ---
History and Physical Update Update Date/Time: 06/07/21 09:36 History and Physical has been reviewed, including an updated exam of the patient. There are NO changes in the patient's condition. Risks, benefits, and alternatives have been discussed and questions answered. Patient agrees to proceed with procedure.
[2021-06-07 10:36] VITALS: BP 113/63; PULSE 83; RESP 20; TEMP 36.2; O2SAT 100
[2021-06-07 10:51] VITALS: BP 108/66; PULSE 77; RESP 18; O2SAT 96
[2021-06-07 11:01] VITALS: BP 103/63; PULSE 76; RESP 18; O2SAT 97
[2021-06-07] MEDS: BUPIVACAINE HCL 0.5% PF 30 ML VIAL 20 ML INFILTRATE (11:01)
[2021-06-07] MEDS: HEPARIN SODIUM 5,000 UNITS/ML VIAL 5000 UNITS IRRIGATION (11:02)
[2021-06-07] MEDS: HEPARIN SODIUM, PORCINE 10,000 UNITS/10 ML VIAL 3000 UNITS IV PUSH (11:07)
[2021-06-07 11:11] VITALS: BP 96/63; PULSE 74; RESP 16; O2SAT 98
[2021-06-07 11:23] VITALS: BP 116/67; PULSE 78; RESP 16
--- NOTE | 2021-06-07 11:30 | W.PM.PROC2 ---
Procedure Note - Detailed Date of Procedure 06/07/21 Pre-op Diagnosis malposition of previously placed LSCV VAD Post-op Diagnosis same Procedure Performed repositioning and securing of malpositioned L SCV VAD Surgeon Rashmi Aguirre MD Anesthesia local Indications 71 y/o F c malposition of previously placed left subclavian venous access device. The reservoir of the port had flipped in the subcutaneous pocket. Findings [place] of venous access device flipped in subcutaneous pocket, once positioned correctly port was noted to be well-functioning Description of Procedure The patient was taken to the operating room and placed in the supine position. The area of the previously placed port was prepped and draped in the normal sterile fashion. A time-out was then done to verify the patient's identity, as well as the procedure being performed. I began by localizing the area of the previous incision and around the port reservoir. I then made an incision through the old incision and gained access into the subcutaneous pocket. I was then able to remove the previously placed port reservoir. I then eusebio and flushed from the port without difficulty. I then placed the reservoir in the proper orientation within the subcutaneous pocket. I then sutured the reservoir in place with 0 Ethibond suture x2. I then gained access once again with the Vega needle and the port easily eusebio and I then flushed 4 cc a final heparin flush into the port. Then closed the incision with 3-0 Vicryl suture in the subcutaneous space, followed by 4-0 Monocryl subcuticular suture. Dermabond was then placed on the wound. The patient tolerated the procedure well and was awake and alert in the operating room. She will be sent to the recovery room in stable condition. Implants Left subclavian venous access device Estimated Blood Loss 5 Drains No Packing No Pathology none sent Complications No immediate complications Condition stable Disposition PACU
== END 2021-06-07 11:47 | disposition home or self-care (01) ==
PROVIDERS: PCP Family Medicine; Visit Provider Surgery
PROC: (CPT 36597; principal; 2021-06-07 11:00)
DX: T82.524A Displacement of infusion catheter, initial encounter (principal); Y83.8 Other surgical procedures as the cause of abnormal reaction of the patient, or of later complication, without mention of misadventure at the time of the procedure; E78.5 Hyperlipidemia, unspecified; F41.8 Other specified anxiety disorders; M19.90 Unspecified osteoarthritis, unspecified site; E55.9 Vitamin D deficiency, unspecified; M85.80 Other specified disorders of bone density and structure, unspecified site; N18.9 Chronic kidney disease, unspecified; Z98.84 Bariatric surgery status; G31.84 Mild cognitive impairment of uncertain or unknown etiology; Z87.891 Personal history of nicotine dependence
CPT/HCPCS: 36597; J1644; J7030

== ENCOUNTER 2021-06-14 09:07 | Outpatient (CLI) | payer MEDICARE, SELFPAY ==
--- NOTE | ~2021-06-14 | US_ITS ---
EXAMINATION: US paracentesis abd w/image DATE: 06/14/2021 10:10 INDICATION: Malignant ascites TECHNIQUE: The procedure and its risks and benefits were discussed with the patient. Potential risks discussed included bleeding and infection. The skin was prepped and draped in sterile fashion. 1% lid ocaine was used for local anesthesia. Under ultrasound guidance, a 5 Fr catheter with trochar was adv anced into the ascites in the left lower quadrant. Fluid was aspirated into vacuum bottles. The billie ter was removed, and a dressing was applied. There were no immediate complications. FINDINGS: Ultrasound images demonstrate ascites and the catheter within the fluid. IMPRESSION: 1. Successful ultrasound-guided paracentesis yielding 2000 mL of dark reddish fluid. Reviewed, dictated and finalized at location A. H MIXER
== END 2021-06-14 09:08 | disposition home or self-care (01) ==
LOC: ANHIMG 09:10
PROVIDERS: PCP Family Medicine; Visit Provider Internal Medicine Hematology & Oncology
DX: R18.0 Malignant ascites (principal)
CPT/HCPCS: 49083

== ENCOUNTER 2021-07-23 09:14 | Outpatient (RCR) | payer MEDICARE, SELFPAY ==
[2021-06-27] VITALS (8 sets, daily range): BP systolic 125–155; BP diastolic 71–89; PULSE 64–77; RESP 16; TEMP 36.6–36.7; O2SAT 96–100
[2021-06-27 08:59] LABS: Mean Platelet Volume 9.7 fl (7.4-10.4); Platelet Count Result 258 k/mm3 (150-375)
[2021-06-27 09:03] LABS: Prothrombin Time 12.9 Seconds (11.1-14.7)
--- NOTE | ~2021-07-23 | US_ITS ---
EXAMINATION: US abdomen limited DATE: 07/06/2021 10:59 INDICATION: Malignant ascites TECHNIQUE: Multiple grayscale ultrasound images of all 4 quadrants of the abdomen were obtained in an ticipation of planned paracentesis. Given the relative paucity of fluid the paracentesis was deferred . COMPARISON: 06/27/2021 FINDINGS: There is a relatively small amount of ascites scattered throughout the abdomen. The largest pocket is in the right upper quadrant measuring 5 x 3 cm. This is significantly less than the amount of fluid at the time of the prior paracentesis which yielded only 650 mL of fluid. IMPRESSION: 1. A few very small pockets of ascites scattered throughout the abdomen and pelvis, insufficient to b enefit from paracentesis at this time. Reviewed, dictated and finalized at location A. ECTION ENGINEER IMPRESSION: 1. A few very small pockets of ascites scattered throughout the abdomen and pel vis, insufficient to benefit from paracentesis at this time.
--- NOTE | ~2021-07-23 | US_ITS ---
EXAMINATION: US paracentesis abd w/image DATE: 06/21/2021 14:40 INDICATION: Ascites. TECHNIQUE: The procedure and its risks, benefits, and alternatives were discussed with the patient. P otential risks discussed included bleeding and infection. The skin was prepped and draped in sterile fashion. 1% lidocaine was used for local anesthesia. Under ultrasound guidance, a 5 Fr catheter with trochar was advanced into the ascites in the left lower quadrant. Fluid was aspirated. The catheter w as removed, and a dressing was applied. There were no immediate complications. FINDINGS: Ultrasound images demonstrate ascites and the catheter within the fluid. IMPRESSION: 1. Successful ultrasound-guided paracentesis yielding 2000 mL of prem-colored fluid. Reviewed, dictated and finalized at location A. MANAGER
--- NOTE | ~2021-07-23 | US_ITS ---
EXAMINATION: US paracentesis abd w/image DATE: 06/27/2021 09:59 INDICATION: Ascites. TECHNIQUE: The procedure and its risks and benefits were discussed with the patient. Potential risks discussed included bleeding and infection. The skin was prepped and draped in sterile fashion. 1% lid ocaine was used for local anesthesia. Under ultrasound guidance, a 5 Fr catheter with trochar was adv anced into the ascites in the lateral right mid abdomen. Fluid was aspirated into vacuum bottles. The catheter was removed, and a dressing was applied. There were no immediate complications. FINDINGS: Ultrasound images demonstrate ascites and the catheter within the fluid. IMPRESSION: 1. Successful ultrasound-guided paracentesis yielding 650 mL of clear prem-colored fluid. Reviewed, dictated and finalized at location A. SETTER IMPRESSION: 1. Successful ultrasound-guided paracentesis yielding 650 mL of clear prem-co lored fluid.
--- NOTE | ~2021-07-23 | US_ITS ---
EXAMINATION: US abdomen limited EXAM DATE: 07/23/2021 09:44 INDICATION: Malignant ascites. TECHNIQUE: Multiple grayscale and Doppler images of the 4 quadrants were obtained (by a technologist who performed the scan) and subsequently reviewed. Correlation is made to 07/06/2021. FINDINGS: Persistent small amount of ascites, too small for paracentesis. IMPRESSION: 1. Small amount of ascites. Reviewed, dictated and finalized at location B. BOSS IMPRESSION: 1. Small amount of ascites.
== END 2021-09-19 23:59 | disposition home or self-care (01) ==
LOC: ANHIMG 09:14
PROVIDERS: Radiology Diagnostic Radiology; PCP Family Medicine; Visit Provider Internal Medicine Hematology & Oncology
DX: C56.3 Malignant neoplasm of bilateral ovaries (principal); C54.1 Malignant neoplasm of endometrium; R18.0 Malignant ascites
CPT/HCPCS: 36415; 49083; 76705; 85049; 85610

== ENCOUNTER 2021-08-14 09:09 | Outpatient (CLI) | payer MEDICARE, SELFPAY ==
--- NOTE | ~2021-08-14 | US_ITS ---
EXAMINATION: US abdomen limited EXAM DATE: 08/14/2021 10:10 INDICATION: Malignant ascites. TECHNIQUE: Multiple grayscale and Doppler images of the 4 abdominal quadrants were obtained (by a elba hnologist who performed the scan) and subsequently reviewed. Comparison is made to prior examination from 07/23/2021. FINDINGS: Small amount of abdominal fluid, ascites demonstrated. No pocket large enough to safely perform parac entesis. IMPRESSION: Small amount of ascites. Paracentesis canceled. Reviewed, dictated and finalized at location B. CULTURAL AGENT
== END 2021-08-14 09:10 | disposition home or self-care (01) ==
PROVIDERS: PCP Family Medicine; Visit Provider Internal Medicine Hematology & Oncology
DX: C56.3 Malignant neoplasm of bilateral ovaries (principal); R18.0 Malignant ascites
CPT/HCPCS: 76705

== ENCOUNTER 2021-10-10 12:16 | Outpatient (CLI) | payer MEDICARE, SELFPAY ==
[2021-10-10 12:50] LABS: Prothrombin Time 12.9 Seconds (11.1-14.7)
== END 2021-10-10 12:17 | disposition home or self-care (01) ==
LOC: ANHLAB 12:17
PROVIDERS: PCP Family Medicine; Visit Provider Surgery
DX: Z01.818 Encounter for other preprocedural examination (principal); T81.30XA Disruption of wound, unspecified, initial encounter
CPT/HCPCS: 36415; 85610; 85730

== ENCOUNTER 2021-10-15 02:17 | Day surgery (SDC) | payer MEDICARE, SELFPAY ==
[2021-10-09 11:11] VITALS: BMI 32.0
--- NOTE | 2021-10-09 11:26 | PC.NURSE ---
Report to the Outpatient Waiting Room, entrance under the green pavilion located off [facility], at time _1:30_ on date _10/11/21_. OR Time: _3:30_. - You and your visitor will be asked a series of questions to screen for COVID 19 for your protection. - A mask is required within the hospital. One visitor will be allowed to accompany the patient into the hospital. Patients visitor will be instructed to remain with patient at all times or leave the building. We will allow the visitor to come back to the postoperative area when patient is ready. Preoperative COVID Testing Requirements: NONE Patients may have clear liquids (water, carbonated beverages, clear teas, apple juice) until 3 hours prior to surgery (12:30 PM) with a maximum of 20 ounces. - No food from midnight until time of surgery Take the following medications with a SIP of water the morning of surgery: _BUPROPION, BUSPIRONE, DONEPEZIL, LORAZEPAM IF NEEDED_ Medications to discontinue per ANESTHESIA ALL VITAMINS & SUPPLEMENTS 3 DAYS PRIOR TO SURGERY, Date to take last dose OF TODAY__ Please no make-up, nail khmer, hairspray, perfume, deodorant, or body powder the day of surgery. No jewelry (including any body piercings) or valuables the day of surgery, leave them at home. Please take a shower or bath the night before, or the morning of, surgery with an antibacterial soap. Wear comfortable, loose fitting clothing. - Jewelry must be removed prior to entering the operating room. Rings and piercings that are not removed may be cut off. - The hospital will not accept responsibility for valuables. - Please leave all valuables, including medications, at home the day of surgery. If you are going home after surgery, a licensed motorcoach driver must drive you home. - NO public transportation without another adult. - We recommend that an adult stay with you for 24 hours following discharge. - We also recommend that you do not drive, make important decision, drink alcoholic beverages, or take any drugs that were not prescribed by your health care provider for at least 24 hours after your discharge time. Follow any additional instructions given to you from your surgeon. Telephone instructions given to __PT and asked if any additional questions and then verbalized understanding. Patient advised to call surgeon office or pre surgery nurse liaison [phone] if any additional questions.
--- NOTE | 2021-10-09 13:48 | PC.NURSE ---
Report to the Outpatient Waiting Room, entrance under the green pavilion located off [facility], at time _0630_ on date _10/15/21_. OR Time: _0830_. - You and your visitor will be asked a series of questions to screen for COVID 19 for your protection. - A mask is required within the hospital. One visitor will be allowed to accompany the patient into the hospital. Patients visitor will be instructed to remain with patient at all times or leave the building. We will allow the visitor to come back to the postoperative area when patient is ready. Preoperative COVID Testing Requirements: NONE Patients may have clear liquids (water, carbonated beverages, clear teas, apple juice) until 3 hours prior to surgery (0530 AM) with a maximum of 20 ounces. - No food from midnight until time of surgery Take the following medications with a SIP of water the morning of surgery: _BUPROPION, BUSPIRONE, DONEPEZIL, LORAZEPAM IF NEEDED_ Medications to discontinue per ANESTHESIA - ALL VITAMINS AND SUPPLEMENTS 3 DAYS PRIOR TO SURGERY, Date to take last dose 10/11/21_ Please no make-up, nail indonesian, hairspray, perfume, deodorant, or body powder the day of surgery. No jewelry (including any body piercings) or valuables the day of surgery, leave them at home. Please take a shower or bath the night before, or the morning of, surgery with an antibacterial soap. Wear comfortable, loose fitting clothing. Children are encouraged to wear pajamas. - Jewelry must be removed prior to entering the operating room. Rings and piercings that are not removed may be cut off. - The hospital will not accept responsibility for valuables. - Please leave all valuables, including medications, at home the day of surgery. If you are going home after surgery, a licensed school boat driver must drive you home. - NO public transportation without another adult. - We recommend that an adult stay with you for 24 hours following discharge. - We also recommend that you do not drive, make important decision, drink alcoholic beverages, or take any drugs that were not prescribed by your health care provider for at least 24 hours after your discharge time. Follow any additional instructions given to you from your surgeon. Telephone instructions given to ____PT and asked if any additional questions and then verbalized understanding. Patient advised to call surgeon office or pre surgery nurse liaison [phone] if any additional questions.
--- NOTE | ~2021-10-15 | XR_ITS ---
EXAMINATION: XR chest port-a-cath/central DATE: 10/15/2021 09:22 INDICATION: Port placement TECHNIQUE: A single frontal view of the chest was obtained on 2 radiographs. COMPARISON: Chest single view 04/19/2021 FINDINGS: There is no pneumonia, pleural effusion, or pneumothorax. The heart size is normal. There i s a right internal jugular port with tip in superior vena cava. IMPRESSION: 1. Port tip in superior vena cava. Reviewed, dictated and finalized at location B.
--- NOTE | ~2021-10-15 | XR_ITS ---
EXAMINATION: XR fl guide central line place DATE: 10/15/2021 08:55 INDICATION: Removal and reinsertion of central venous port catheter TECHNIQUE: Single fluoroscopic spot image of the central chest was obtained during procedure performe d by Dr. Aguirre. Radiologist was not present for the imaging or procedure. The amount of fluoroscopy t timbo used during this procedure was 0.5 minutes. COMPARISON: 04/19/2021 FINDINGS: Right internal jugular central venous port catheter with distal tip at the cephalad superior vena cav a. A prior left subclavian central venous catheter seen with distal tip at the high right atrium. Vis ualized portion of the lungs are clear. IMPRESSION: 1. Fluoroscopy utilized during right internal jugular central venous port catheter placement. See pro cedure note for further detail. Reviewed, dictated and finalized at location A. IMPRESSION: 1. Fluoroscopy utilized during right internal jugular central venous port billie ter placement. See procedure note for further detail.
[2021-10-15] MEDS: LACTATED RINGERS 1,000 ML 30 ML IV CONT (06:59)
[2021-10-15 07:09] VITALS: BP 144/81; PULSE 76; RESP 16; TEMP 36.7; O2SAT 100
--- NOTE | 2021-10-15 07:16 | WPDHPUPDATE1 ---
History and Physical Update Update Date/Time: 10/15/21 07:16 History and Physical has been reviewed, including an updated exam of the patient. There are NO changes in the patient's condition. Risks, benefits, and alternatives have been discussed and questions answered. Patient agrees to proceed with procedure.
--- NOTE | 2021-10-15 07:56 | WPDANESEPPF ---
Anes - Initial Pre Proc Eval Procedure: Operation Date: 10/15/21 08:30 Proposed Procedures p Removal Juan Manuel Cath, - Rashmi Aguirre MD s Re-Insertion Juan Manuel Cath - Rashmi Aguirre MD Date/Time: 10/15/21 07:56 Surgeon: Rashmi Aguirre MD Pre Op Diagnosis: wound dehiscence Patient Data Age: 71 Gender: F Height: 1.73 m Weight: 98 kg Last Vital Signs Temp 36.7 C 10/15/21 07:09 Pulse 76 10/15/21 07:09 Resp 16 10/15/21 07:09 BP 144/81 H 10/15/21 07:09 Pulse Ox 100 10/15/21 07:09 Allergies Allergy/AdvReac Type Severity Reaction Status Date / Time No Known Allergies Allergy Verified 10/15/21 06:38 Home Medications Medication Instructions Recorded Confirmed Type cholecalciferol (vitamin D3) 125 125 mcg PO DAILY 09/20/19 10/09/21 History mcg (5,000 unit) capsule donepezil 10 mg tablet 10 mg PO QAM 09/20/19 10/09/21 History biotin 10 mg tablet 10 mg PO DAILY 02/15/20 10/09/21 History magnesium citrate 100 mg tablet 1,000 mg PO DAILY 02/15/20 10/09/21 History mecobalamin (vitamin B12) 500 mcg PO QAM 02/15/20 10/09/21 History omega-3 fatty acids 1,000 mg 1,000 mg PO DAILY 02/15/20 10/09/21 History capsule zinc 50 mg PO DAILY 02/15/20 10/09/21 History calcium carbonate 1,000 mg-vitamin 1 tablet PO DAILY #30 tablet 09/12/20 10/09/21 Rx D3 20 mcg (800 unit) tablet Glucosamine Chondroitin 1 cap PO DAILY 04/16/21 10/09/21 History vitamin E 1 tablet PO BID 04/16/21 10/09/21 History bupropion HCl 200 mg tablet,12 hr 200 mg PO BID tablet 07/04/21 10/09/21 History sustained-release buspirone 10 mg tablet 10 mg PO TID tablet 07/04/21 10/09/21 History duloxetine 60 mg capsule,delayed 60 mg PO HS cap 07/04/21 10/09/21 History release levocetirizine 5 mg tablet 5 mg PO DAILY tablet 07/04/21 10/09/21 History lorazepam 0.5 mg tablet 0.5 mg PO Q8H PRN 07/04/21 10/09/21 History pantoprazole 40 mg tablet,delayed 40 mg PO DAILY tablet 07/04/21 10/09/21 History release trazodone 50 mg tablet 50 mg PO QHS PRN tablet 07/04/21 10/09/21 History furosemide 20 mg tablet 40 mg PO DAILY PRN tablet 07/31/21 10/09/21 History potassium chloride 20 mEq 20 meq PO DAILY 07/31/21 10/09/21 History tablet,extended release(part/cryst) fluticasone propionate 50 2 spray INTRANASAL DAILY #48 g 09/11/21 10/09/21 Rx mcg/actuation nasal spray,suspension Patient hx anesthesia problems: none Family hx anesthesia problems: none Results Review: All pre-operative results and documents have been reviewed as part of the pre-operative evaluation. [facility] Past Medical History Medical History Anxiety Carcinosarcoma Chronic renal insufficiency Depression Dry mouth Dyslipidemia Environmental allergies Left breast mass Mild cognitive impairment Morbid obesity Osteoarthritis Osteopenia Seasonal allergies Vision abnormalities Vitamin D deficiency Weight gain Surgical History Surgical History H/O breast biopsy (~2016) benign x2 in the left breast H/O rectal polypectomy (~2009) History of bariatric surgery (~2010) History of cataract surgery (~2018) bilaterally Hx of cholecystectomy (~1997) Status post total right knee replacement (~03/15/20) 03/15/20 Family History Family History Mother Depression Atrial fibrillation Father COPD (chronic obstructive pulmonary disease) Other Family history of Alzheimer's disease Family history of atrial fibrillation Social History Social History Social History: Smoking packs per day: 0.5 Smoking cigarettes per day: 10.0 Years smoked: 15 Smoking pack-years: 7.50 Smoking status: Former smoker Tobacco type: cigarettes Second hand tobacco smoke exposure: No Smoking end date: 12/14/84 Additional smoking
[2021-10-15] MEDS: ceFAZolin 2 GM/D5W 50 ML 2 GM/50 ML BAG IVPB (08:02)
[2021-10-15] MEDS: HEPARIN SODIUM 5,000 UNITS/ML VIAL 5000 UNITS IRRIGATION (08:27)
[2021-10-15] MEDS: HEPARIN SODIUM, PORCINE 10,000 UNITS/10 ML VIAL 3000 UNITS IV PUSH (08:28)
[2021-10-15 09:07] VITALS: BP 142/72; PULSE 94; RESP 16; O2SAT 92
--- NOTE | 2021-10-15 09:15 | W.PM.PROC2 ---
Procedure Note - Detailed Date of Procedure 10/15/21 Pre-op Diagnosis wound dehiscence, exposed left subclavian venous access device, metastatic endometrial cancer Post-op Diagnosis Same Procedure Performed placement of right internal jugular low profile venous access device under ultrasound and fluoroscopic guidance, removal of left subclavian venous access device Surgeon Rashmi Aguirre MD Anesthesia MAC and Local Indications 71-year-old female with metastatic endometrial cancer currently undergoing chemotherapy with noted left chest wound dehiscence and exposed left subclavian venous access device Findings exposed left subclavian venous access device Description of Procedure Patient was brought into the operating room and placed in the supine position. After adequate induction of mac anesthesia, the patient was prepped and draped in normal sterile fashion. Time-out was then done to verify the patient's identity, as well as the procedure being performed. I used the ultrasound to gain access into the right internal jugular vein. Once access was gained, I placed the guidewire in the vein and confirmed proper positioning using fluoroscopy. I then locally anesthetized an area in the right chest. I then made an incision including making a subcutaneous pocket inferiorly to allow placement of the port itself. I proceeded to tunnel the catheter from the chest to the right neck insertion site. I then placed a dilating sheath over the guidewire into the right internal jugular vein via sterile Seldinger technique. This was once again done and confirmed via fluoroscopic guidance. I then removed the dilator and the guidewire, now just leaving the sheath in the vein. I then fed the previously flushed catheter into the right internal jugular vein under fluoroscopic guidance. The catheter would not feed into the sheath. Given this, I replaced the guidewire and a 9 Fr sheath was then placed under fluoroscpic guidance. I was then able to place the catheter thru the sheath. At approximately 20 cm, the catheter was noted to be near the atrial caval junction. I then peeled away the sheath, now just leaving the catheter in the vein. I then was able to easily draw and flush from the catheter. The catheter was cut to fit and attached to the port itself. The port was placed into the previously made subcutaneous pocket and sutured in with 0 Ethibond suture. Final fluoroscopic view showed the termination of the catheter at the atrial caval junction with a nice smooth curvature back to the port itself. I was able to gain access to the port with a Vega needle and was able to easily draw and flush from the port. I then flushed 4 cc of a final heparin flush into the port. The incision was closed with 3 0 Vicryl suture in the subcutaneous tissue and the skin was closed with 4 O Monocryl subcuticular suture. Dermabond was then placed on wound. I then localized the left chest along the previously made incision. Then opened the incision to gain access to the previously placed left subclavian port. Once access was gained, I dissected around the cavity and was able to remove the reservoir. I then removed the port in full including the catheter. I then held pressure at the level of the left subclavian vein and no bleeding was noted. I then copiously irrigated the cavity, no signs or symptoms of active infection were noted. I then closed the subcutaneous tissue with 3-0 Vicryl suture. The skin was closed with 4-0 Monocryl subcuticular suture. Dermabond was then placed on the wound. The patient tolerated the procedure well and will be sent to the recovery room in stable condition. Implants low profile RIJ VAD Estimated Blood Loss 40 Drains No Packing No Pathology None sent Complications No immediate complications Condition Stable Disposition PACU
--- NOTE | 2021-10-15 09:16 | SUR.PHASEII ---
0916- chest x ray obtained for port placement
[2021-10-15] MEDS: FAMOTIDINE 20 MG/2 ML VIAL IV PUSH (09:22)
[2021-10-15 09:37] VITALS: BP 141/77; PULSE 63
[2021-10-15 10:07] VITALS: BP 144/83; PULSE 82
== END 2021-10-15 10:21 | disposition home or self-care (01) ==
PROVIDERS: PCP Family Medicine; Visit Provider Surgery
PROC: (CPT 36589; principal; 2021-10-15 08:30)
PROC: (CPT 36590; 2021-10-15 08:30)
DX: T81.31XA Disruption of external operation (surgical) wound, not elsewhere classified, initial encounter (principal); C54.1 Malignant neoplasm of endometrium; Y83.8 Other surgical procedures as the cause of abnormal reaction of the patient, or of later complication, without mention of misadventure at the time of the procedure; F41.8 Other specified anxiety disorders; N28.9 Disorder of kidney and ureter, unspecified; E78.5 Hyperlipidemia, unspecified; M19.90 Unspecified osteoarthritis, unspecified site; G31.84 Mild cognitive impairment of uncertain or unknown etiology; E55.9 Vitamin D deficiency, unspecified; Z87.891 Personal history of nicotine dependence; E66.9 Obesity, unspecified; Z68.32 Body mass index [BMI] 32.0-32.9, adult; Z90.49 Acquired absence of other specified parts of digestive tract
CPT/HCPCS: 36590; 36561; 36415; 77001; 85610; 85730; C1788; J0690; J1644; J2250; J2270; J2704; J7030; J7120

== ENCOUNTER 2021-12-20 10:31 | Outpatient (CLI) | payer MEDICARE, SELFPAY ==
--- NOTE | ~2021-12-20 | MM_ITS ---
EXAMINATION: MM screening [facility] BI w royce HISTORY: Screening TECHNIQUE: Craniocaudal and mediolateral oblique 3-D tomosynthesis images were obtained and synthetic 2-D images were generated. CAD analysis was submitted and interpreted. COMPARISON: Comparison to multiple prior studies sequentially, with oldest reviewed study dated 04/17. BREAST PARENCHYMAL COMPOSITION: Breast composed of scattered areas of fibroglandular density FINDINGS: There is no evidence of suspicious mass, calcification, or architectural distortion to sugg est malignancy in either breast. There has been no suspicious interval change. IMPRESSION: 1. No mammographic evidence of malignancy. 2. Recommend routine screening mammography in one year. BI-RADS Category 1: Negative Reviewed, dictated and finalized at location A.
== END 2021-12-20 10:32 | disposition home or self-care (01) ==
LOC: ANHIMG 10:33
PROVIDERS: PCP Family Medicine; Visit Provider Obstetrics & Gynecology
DX: Z12.31 Encounter for screening mammogram for malignant neoplasm of breast (principal)
CPT/HCPCS: 77063; 77067

== ENCOUNTER 2022-02-14 15:10 | Outpatient (NON) | payer MEDICARE, SELFPAY ==
[2022-02-14 17:54] LABS: Basophils Absolute Auto 0.1 K/mm3 (0.0-0.1); Basophils Percent Auto 1.1 % (0.2-1.2); Eosinophils Absolute Auto 0.3 K/mm3 (0-0.3); Hemoglobin 10.2 g/dL (12.0-15.0); Immature Granulocyte Absolute 0.02 K/mm3 (0.00-0.031); Immature Granulocyte Percent A 0.4 % (0-0.5); Lymphocytes Absolute Auto 1.23 K/mm3 (0.9-3.2); Lymphocytes Percent Auto 22.8 % (18.3-44.2); Mean Corpuscular HGB Conc 31.9 g/dl (32-36); Mean Corpuscular Hemoglobin 32.4 pg (26-34); Mean Corpuscular Volume 101.6 fl (80-100); Mean Platelet Volume 9.9 fl (7.4-10.4); Monocytes Absolute Auto 0.8 K/mm3 (0.1-0.6); Monocytes Percent Auto 14.4 % (2.6-8.5); Neutrophils Percent Auto 56.3 % (45.5-73.1); Platelet Count Result 368 k/mm3 (150-375); Red Blood Count 3.15 M/mm3 (4.2-5.4); Red Cell Distribution Width 14.6 % (11.5-14.5); White Blood Count 5.4 K/mm3 (4.5-10.0)
[2022-02-14 18:08] LABS: Iron 66 ug/dL (37-170)
[2022-02-14 18:10] LABS: Alanine Aminotransferase 14 U/L (6-35); Albumin Level 3.7 g/dL (3.5-5.1); Alkaline Phosphatase 70 U/L (38-126); Anion Gap 11 mmol/L (8-16); Aspartate Amino Transferase 25 U/L (14-36); Bilirubin,Total 0.1 mg/dL (0.2-1.3); Blood Urea Nitrogen 19 mg/dL (7-17); Calcium 9.2 mg/dL (8.4-10.2); Carbon Dioxide 24 mmol/L (22-30); Chloride 100 mmol/L (98-107); Estimated Glomerular Filt Rate 49; Glucose 102 mg/dL (65-110); Magnesium 1.9 mg/dL (1.6-2.3); Potassium 4.2 mmol/L (3.4-5.0); Sodium 135 mmol/L (137-145)
[2022-02-14 18:17] LABS: Percent Iron Saturation 20 % (20-50)
[2022-02-14 18:59] LABS: Vitamin B12 > 1000.0 pg/mL (239-931)
[2022-02-17 23:23] LABS: Albumin 3.4 g/dL (3.8-4.8); Alpha 1 Globulin 0.4 g/dL (0.2-0.3); Alpha 2 Globulin 0.9 g/dL (0.5-0.9); Beta 1 Globulin 0.4 g/dL (0.4-0.6); Gamma Globulin 0.8 g/dL (0.8-1.7); Protein, Total 6.3 g/dL (6.1-8.1)
[2022-02-18 01:31] LABS: CA-125 59 U/mL (<35)
== END 2022-02-14 15:11 | disposition home or self-care (01) ==
LOC: ANHLAB 15:16
PROVIDERS: PCP Family Medicine; Visit Provider Internal Medicine Hematology & Oncology
DX: C54.1 Malignant neoplasm of endometrium (principal); Z51.81 Encounter for therapeutic drug level monitoring; R18.0 Malignant ascites; Z79.899 Other long term (current) drug therapy
CPT/HCPCS: 36415; 80053; 82607; 82728; 83540; 83550; 83735; 84155; 84165; 85025; 86304

== ENCOUNTER 2022-10-16 08:28 | Outpatient (CLI) | payer MEDICARE, SELFPAY ==
[2022-10-16 08:53] LABS: Basophils Percent Auto 0.5 % (0.2-1.2); Eosinophils Absolute Auto 0.1 K/mm3 (0-0.3); Eosinophils Percent Auto 1.3 % (0-4.4); Hematocrit 32.8 % (37.0-47.0); Hemoglobin 11.2 g/dL (12.0-15.0); Immature Granulocyte Absolute 0.01 K/mm3 (0.00-0.031); Immature Granulocyte Percent A 0.3 % (0-0.5); Lymphocytes Absolute Auto 1.14 K/mm3 (0.9-3.2); Lymphocytes Percent Auto 29.7 % (18.3-44.2); Mean Corpuscular HGB Conc 34.1 g/dl (32-36); Mean Corpuscular Hemoglobin 34.5 pg (26-34); Mean Corpuscular Volume 100.9 fl (80-100); Mean Platelet Volume 10.1 fl (7.4-10.4); Monocytes Absolute Auto 0.8 K/mm3 (0.1-0.6); Monocytes Percent Auto 19.8 % (2.6-8.5); Neutrophils Absolute Auto 1.9 K/mm3 (1.3-6.7); Neutrophils Percent Auto 48.4 % (45.5-73.1); Nucleated Red Blood Cells Absolute Auto 0.1 K/mm3 (0.0-0.012); Nucleated Red Blood Cells Perc 2.9 % (0.0-0.2); Platelet Count Result 173 k/mm3 (150-375); Red Blood Count 3.25 M/mm3 (4.2-5.4); Red Cell Distribution Width 18.7 % (11.5-14.5); White Blood Count 3.8 K/mm3 (4.5-10.0)
[2022-10-16 09:55] LABS: Cholesterol 204 mg/dL (0-200); HDL Direct 83 mg/dL; Iron 90 ug/dL (37-170); Triglycerides 72 mg/dL (<150)
[2022-10-16 10:03] LABS: Alanine Aminotransferase 21 U/L (6-35); Alkaline Phosphatase 100 U/L (38-126); Anion Gap 1 mmol/L (8-16); Aspartate Amino Transferase 28 U/L (14-36); Bilirubin,Total 0.5 mg/dL (0.2-1.3); Blood Urea Nitrogen 15 mg/dL (7-17); Calcium 9.3 mg/dL (8.4-10.2); Carbon Dioxide 36 mmol/L (22-30); Chloride 102 mmol/L (98-107); Estimated Glomerular Filt Rate 44; Glucose 109 mg/dL (65-110); Potassium 4.2 mmol/L (3.4-5.0); Sodium 139 mmol/L (137-145)
[2022-10-16 10:05] LABS: LDL Cholesterol Direct 88 mg/dL; Percent Iron Saturation 25 % (20-50)
[2022-10-16 10:14] LABS: Vitamin D 25 Hydroxy 87.9 ng/mL
[2022-10-16 10:27] LABS: Thyroid Stimulating Hormone Reflex 0.304 uIU/mL (0.465-4.68)
[2022-10-16 10:47] LABS: Vitamin B12 > 1000.0 pg/mL (239-931)
[2022-10-16 12:43] LABS: Total Triiodothyronine (T3) 1.24 NG/ML (0.97-1.69)
[2022-10-19 23:47] LABS: CA-125 6 U/mL (<35)
== END 2022-10-16 08:29 | disposition home or self-care (01) ==
LOC: ANHLAB 08:30
PROVIDERS: PCP Family Medicine; Visit Provider Internal Medicine Hematology & Oncology
DX: C54.1 Malignant neoplasm of endometrium (principal); D64.9 Anemia, unspecified; E78.5 Hyperlipidemia, unspecified; F03.90 Unspecified dementia, unspecified severity, without behavioral disturbance, psychotic disturbance, mood disturbance, and anxiety; F41.8 Other specified anxiety disorders; C56.1 Malignant neoplasm of right ovary; E55.9 Vitamin D deficiency, unspecified
CPT/HCPCS: 36415; 80053; 80061; 82306; 82607; 82728; 83540; 83550; 84439; 84443; 84480; 85025; 86304

== ENCOUNTER 2023-02-20 09:11 | Outpatient (CLI) | payer MEDICARE, SELFPAY ==
--- NOTE | ~2023-02-20 | MM_ITS ---
EXAMINATION: MM screening [facility] w royce HISTORY: Screening mammogram TECHNIQUE: Craniocaudal and mediolateral oblique 3-D tomosynthesis images were obtained and synthetic 2-D images were generated. CAD analysis was submitted and interpreted. COMPARISON: 12/20/2021, 10/10/2020, 04/2019 bilateral screening mammogram examinations BREAST PARENCHYMAL COMPOSITION: There are scattered areas of fibroglandular density. FINDINGS: There are 2 biopsy markers on the left; history of prior benign left breast biopsies. Scattered bilateral benign calcifications are again noted. There is no evidence of suspicious mass, c alcification, or architectural distortion to suggest malignancy in either breast. There has been no s uspicious interval change. IMPRESSION: 1. No mammographic evidence of malignancy. 2. Recommend routine screening mammography in one year. BI-RADS Category 2: Benign finding(s). Reviewed, dictated and finalized at location A.
== END 2023-02-20 09:12 | disposition home or self-care (01) ==
PROVIDERS: PCP Family Medicine; Visit Provider Obstetrics & Gynecology
DX: Z12.31 Encounter for screening mammogram for malignant neoplasm of breast (principal)
CPT/HCPCS: 77063; 77067

== ENCOUNTER 2023-06-24 10:14 | Emergency (ER) | payer MEDICARE, SELFPAY ==
[2023-06-24] VITALS (9 sets, daily range): BP systolic 117–143; BP diastolic 69–82; PULSE 81–91; RESP 18–25; TEMP 36.7–36.8; O2SAT 92–95
--- NOTE | ~2023-06-24 | XR_ITS ---
EXAMINATION: XR chest 1V DATE: 06/24/2023 12:03 INDICATION: Shortness of breath. TECHNIQUE: A single frontal view of the chest was obtained. COMPARISON: Chest single view 10/15/2021, chest CT 06/24/2023 FINDINGS: There is a moderate-sized right pleural effusion. There are airspace opacities at right gerhard g base, likely atelectasis. No pneumothorax. The heart size is normal. There is a right internal jugu lar port with tip in superior vena cava. IMPRESSION: 1. Moderate-sized right pleural effusion. 2. Airspace opacities at right lung base, likely atelectasis. Reviewed, dictated and finalized at location L. ING MILL OPERATOR
--- NOTE | ~2023-06-24 | US_ITS ---
EXAMINATION: US paracentesis abd w/image DATE: 06/24/2023 15:57 INDICATION: Ascites. TECHNIQUE: The procedure and its risks, benefits, and alternatives were discussed with the patient. P otential risks discussed included bleeding and infection. The skin was prepped and draped in sterile fashion. 1% lidocaine was used for local anesthesia. Under ultrasound guidance, a 5 Fr catheter with trochar was advanced into the ascites in the left lower quadrant. Fluid was aspirated. The catheter w as removed, and a dressing was applied. There were no immediate complications. FINDINGS: Ultrasound images demonstrate ascites and the catheter within the fluid. IMPRESSION: 1. Successful ultrasound-guided paracentesis yielding 2000 mL of opaque, red fluid. Reviewed, dictated and finalized at location A. DESK OPERATOR IMPRESSION: 1. Successful ultrasound-guided paracentesis yielding 2000 mL of opaque, red f luid.
--- NOTE | ~2023-06-24 | US_ITS ---
EXAMINATION: US thoracentesis DATE: 06/24/2023 15:35 INDICATION: pleural effusion TECHNIQUE: The procedure and its risks, benefits, and alternatives were discussed with the patient. P otential risks discussed included bleeding, infection, and pneumothorax. The patient understood the r isks and agreed to proceed. The skin was prepped and draped in sterile fashion. 1% lidocaine was used for local anesthesia. Under ultrasound guidance, a 5 Fr catheter with trochar was advanced into the right pleural effusion. Fluid was aspirated. The catheter was removed, and a dressing was applied. Th ere were no immediate complications. FINDINGS: Ultrasound images demonstrate a right pleural effusion and the catheter within the fluid. IMPRESSION: 1. Successful ultrasound-guided thoracentesis yielding 1000 mL of brown-red fluid. Reviewed, dictated and finalized at location A. LITIGATION PARALEGAL IMPRESSION: 1. Successful ultrasound-guided thoracentesis yielding 1000 mL of brown-red fl uid.
--- NOTE | ~2023-06-24 | XR_ITS ---
EXAMINATION: [id number]_CR DATE: 06/24/2023 16:30 INDICATION: Right pleural effusion status post thoracentesis. TECHNIQUE: A single frontal view of the chest was obtained. COMPARISON: Chest CT 06/24/2023, chest single view 06/20/2023 FINDINGS: There is elevation of right hemidiaphragm. There is a moderate-sized right pleural effusion . There are airspace opacities at right lung base, likely atelectasis. No pneumothorax. The heart siz e is normal. There is a right internal jugular port with tip in superior vena cava. IMPRESSION: 1. Moderate-sized right pleural effusion with improvement status post thoracentesis. Reviewed, dictated and finalized at location A. WASH ATTENDANT AUTOMATIC IMPRESSION: 1. Moderate-sized right pleural effusion with improvement status post thoracent esis.
--- NOTE | ~2023-06-24 | CT_ITS ---
EXAMINATION: CTA chest PE abdomen pel DATE: 06/24/2023 11:54 INDICATION: Shortness of breath. Pulmonary embolism. TECHNIQUE: Computed tomography angiography (CTA) of the chest was performed with 100 mL Omnipaque-350 intravenous contrast timed to evaluate the pulmonary arteries. Coronal maximum intensity projection 3D-reconstructions were created by the technologist. Automated exposure control and iterative reconst ruction technique were employed. Exam dose: 2276.82 mGy-cm total exam DLP. COMPARISON: 10/15/2021 portable AP chest FINDINGS: There is diagnostic contrast enhancement of the pulmonary arteries and no detected pulmonar y emboli.. No thoracic aortic aneurysm or dissection. Cardiomegaly. No pericardial effusion. No hilar or mediastinal mass lesion or lymphadenopathy. Very large right pleural effusion with prominent compressive atelectasis of the right lower lobe. Approximately 1.9 x 2.2 cm pleural-based soft tissue mass of the anteromedial right upper chest; cons ider pleural or pulmonary malignancy. 3 mm, 6 mm, 5.3 mm and 8 mm left lower lobe pulmonary nodular masses; metastases or primary small gerhard g malignancy are not excluded. Right Port-A-Cath. Small sliding hiatal hernia. Status post cholecystectomy. Multiple hepatic space-occupying mass lesions consistent with metastatic disease. Nondisplaced lateral right seventh rib fracture. Diffuse idiopathic skeletal hyperostosis of the thoracic spine. IMPRESSION: No evidence of pulmonary embolus Large right pleural effusion and prominent associated compressive atelectasis right lower lobe 1.9 x 2.2 cm pleural-based anterolateral right upper chest mass; consider pleural or pulmonary malign miriam Multiple left lower lobe masses measuring up to 8 mm; consider metastases and/or primary lung cancer Recent lateral right seventh rib fracture Small sliding hiatal hernia Status post cholecystectomy Multiple hepatic metastases Reviewed, dictated and finalized at Location A. Reviewed, dictated and finalized at location L. F OPHTHALMIC TECHNICIAN IMPRESSION: No evidence of pulmonary embolus Large right pleural effusion and prominent associated compressive atelectasis r ight lower lobe 1.9 x 2.2 cm pleural-based anterolateral right upper chest mass; consider pleur al or pulmonary malignancy Multiple left lower lobe masses measuring up to 8 mm; consider metastases and/o r primary lung cancer Recent lateral right seventh rib fracture Small sliding hiatal hernia Status post cholecystectomy Multiple hepatic metastases
--- NOTE | 2023-06-24 10:23 | ED.SOB ---
HPI - SOB/Dyspnea General Chief Complaint: Shortness of Breath/Dyspnea Stated Complaint: SOB Time Seen by Provider: 06/24/23 10:23 Source: patient and family Mode of arrival: ambulatory Limitations: no limitations History of Present Illness HPI Narrative: 73 YEARS OLD WHITE FEMALE CAME TO THE EMERGENCY ROOM COMPLAINING OF INCREASED SHORTNESS OF BREATH AND COUGHING AND NASAL CONGESTION AFTER POSITIVE COVID TEST ON MAY 31, 2023. PATIENT DID NOT START ON PAXLOVID AT THAT TIME. HISTORY OF OVARIAN CANCER WITH METASTASIS, OF CHEMOTHERAPY BECAUSE IS NOT GOING TO GO TO WORK, WAS GIVING 3-6 MONTHS TO LIVE. CURRENTLY HAVING ABDOMINAL ASCITES SECONDARY TO CANCER. PATIENT'S FAMILY WOULD LIKE TO KNOW IF THE PATIENT HAD A BLOOD CLOT SECONDARY TO COVID INFECTION NOT. PATIENT IS STATUS POST SPLENECTOMY. Related Data Home Medications Medication Instructions Recorded Confirmed cholecalciferol (vitamin D3) 125 125 mcg PO DAILY 09/20/19 02/24/23 mcg (5,000 unit) capsule donepezil 10 mg tablet 10 mg PO QAM 09/20/19 02/24/23 biotin 10 mg tablet 10 mg PO DAILY 02/15/20 02/24/23 magnesium citrate 100 mg tablet 1,000 mg PO DAILY 02/15/20 02/24/23 mecobalamin (vitamin B12) 500 mcg PO QAM 02/15/20 02/24/23 omega-3 fatty acids 1,000 mg 1,000 mg PO DAILY 02/15/20 02/24/23 capsule (Fish Oil Concentrate) zinc 50 mg PO DAILY 02/15/20 02/24/23 glucosamine sulf dipot 1 cap PO DAILY 04/16/21 02/24/23 chlr,msm,chond 550 mg-C 30 mg-gómez 1 mg capsule (Glucosamine Chondroitin) vitamin E 1,000 unit tablet 1 tablet PO BID 04/16/21 02/24/23 bupropion HCl 200 mg tablet,12 hr 200 mg PO BID 07/04/21 02/24/23 sustained-release buspirone 10 mg tablet 10 mg PO TID 07/04/21 02/24/23 duloxetine 60 mg capsule,delayed 60 mg PO HS 07/04/21 02/24/23 release lorazepam 0.5 mg tablet 0.5 mg PO Q8H PRN anxiety 07/04/21 02/24/23 pantoprazole 40 mg tablet,delayed 40 mg PO DAILY 07/04/21 02/24/23 release rucaparib 250 mg tablet (Rubraca) 500 mg PO BID 09/10/22 02/24/23 lenalidomide 10 mg capsule 10 mg PO DAILY 01/13/23 02/24/23 (Revlimid) Allergies Allergy/AdvReac Type Severity Reaction Status Date / Time No Known Allergies Allergy Verified 02/24/23 09:25 Review of Systems Review of Systems: All systems reviewed & are unremarkable except as noted in HPI and below PMFSH Past Medical History Medical History Anxiety Carcinosarcoma of right ovary CKD (chronic kidney disease) stage 3, GFR 30-59 ml/min Depression Distal radius fracture, left (~02/2021) Dry mouth Dyslipidemia Environmental allergies GERD without esophagitis Left breast mass Mild cognitive impairment Morbid obesity Osteoarthritis Osteopenia Seasonal allergies Vision abnormalities Vitamin D deficiency Weight gain Surgical History Surgical History H/O breast biopsy (~2016) benign x2 in the left breast H/O rectal polypectomy (~2009) History of bariatric surgery (~2010) History of cataract surgery (~2018) bilaterally History of hysterectomy for cancer (~01/2022) History of resection of liver (~01/2022) partial History of splenectomy (~01/2022) History of tonsillectomy (~1956) Hx of cholecystectomy (~1997) Port-A-Cath in place (~05/2021) Status post total right knee replacement (~03/15/20) 03/15/20 Family History Family History Mother Depression Atrial fibrillation Father COPD (chronic obstructive pulmonary disease) Other Family history of Alzheimer's disease Family history of atrial fibrillation Social History Social History Social History: Smoking packs per day: 0.5 Smoking cigarettes per day: 10.0 Years smoked: 15 Smoking pack-years: 7.50 Smoking status: Former smoker Tobacco type: cigarettes Second hand tobacco smoke exposure: No
--- NOTE | 2023-06-24 10:31 | ECG_ITS ---
Measurements Intervals [place] Rate: 90 P: 5 LA: 108 QRS: -28 QRSD: 98 T: 73 QT: 358 QTc: 440 Interpretive Statements SINUS RHYTHM WITH SHORT LA INTERVAL VENTRICULAR COUPLET AND ATRIAL PREMATURE COMPLEXES ANTEROSEPTAL INFARCT, AGE INDETERMINATE BASELINE ARTIFACT- I, II, III, AVF, V1-V6 ABNORMAL ECG COMPARED TO ECG 03/17/2020 10:28:09 MYOCARDIAL INFARCT FINDING NOW PRESENT Electronically Signed On 06-24-2023 10:44:49 GARBAGE COLLECTOR DRIVER by Will Rinaldi D.O.
[2023-06-24 11:16] LABS: Alveolar/Arterial O2 Gradient 48.9 mmHg; Base Excess ABG 1.4 mEq/l (+/-2.0); Fractional Inspired Oxygen 21 %; HCO3 ABG 23.9 mEq/l (22.0-26.0); Oxygen Content ABG 16.2 %vol (16.0-22.0); Oxygen Saturation ABG 94.1 % (95.0-100.0); Oxyhemoglobin 90.1 % THb (90.0-100.0); PCO2 ABG 31.6 mmHg (35.0-45.0); Total Hemoglobin 12.8 g/dL (12.0-18.0); pH ABG 7.497 (7.350-7.450)
[2023-06-24 11:17] LABS: Device ROOM AIR; Modified Allen's Test Pass; Site Drawn RIGHT RADIAL
[2023-06-24 11:18] LABS: Basophils Percent Auto 0.5 % (0.2-1.2); Eosinophils Absolute Auto 0.3 K/mm3 (0-0.3); Eosinophils Percent Auto 3.5 % (0-4.4); Hematocrit 33.7 % (37.0-47.0); Immature Granulocyte Absolute 0.03 K/mm3 (0.00-0.031); Immature Granulocyte Percent A 0.4 % (0-0.5); Lymphocytes Absolute Auto 1.09 K/mm3 (0.9-3.2); Lymphocytes Percent Auto 14.3 % (18.3-44.2); Mean Corpuscular HGB Conc 32.6 g/dl (32-36); Mean Corpuscular Hemoglobin 32.3 pg (26-34); Mean Corpuscular Volume 98.8 fl (80-100); Mean Platelet Volume 9.6 fl (7.4-10.4); Monocytes Absolute Auto 1.2 K/mm3 (0.1-0.6); Monocytes Percent Auto 15.2 % (2.6-8.5); Neutrophils Percent Auto 66.1 % (45.5-73.1); Platelet Count Result 383 k/mm3 (150-375); Red Blood Count 3.41 M/mm3 (4.2-5.4); Red Cell Distribution Width 14.3 % (11.5-14.5); White Blood Count 7.6 K/mm3 (4.5-10.0)
[2023-06-24] MEDS: SODIUM CHLORIDE 0.9% IV 1,000 ML 999 ML IV CONT (11:25)
[2023-06-24 11:28] LABS: INR 1.1; Prothrombin Time 14.5 Seconds (11.1-14.7)
[2023-06-24 11:29] LABS: Partial Thromboplastin Time 31.8 SECONDS (22.3-36.8)
[2023-06-24 11:31] LABS: Alanine Aminotransferase 75 U/L (6-35); Albumin Level 3.1 g/dL (3.5-5.1); Alkaline Phosphatase 271 U/L (38-126); Anion Gap 6 mmol/L (8-16); Aspartate Amino Transferase 112 U/L (14-36); Bilirubin,Total 0.6 mg/dL (0.2-1.3); Blood Urea Nitrogen 16 mg/dL (7-17); Calcium 8.9 mg/dL (8.4-10.2); Carbon Dioxide 25 mmol/L (22-30); Chloride 102 mmol/L (98-107); Creatine Kinase 60 U/L (30-135); Estimated CRCL calculation 67 ml/min; Estimated Glomerular Filt Rate > 60; Glucose 99 mg/dL (65-110); Sodium 133 mmol/L (137-145)
[2023-06-24 11:35] LABS: CRP 3.4 mg/dL (<1.0)
--- NOTE | 2023-06-24 11:42 | ECG_ITS ---
Measurements Intervals [place] Rate: 92 P: 35 [place]: 165 QRS: -33 QRSD: 83 T: 42 QT: 344 QTc: 427 Interpretive Statements SINUS RHYTHM ATRIAL AND VENTRICULAR PREMATURE COMPLEXES ANTEROSEPTAL INFARCT, AGE INDETERMINATE BORDERLINE ST-T WAVE ABNORMALITY- HIGH LATERAL LEADS BASELINE ARTIFACT- I, II, III, AVR, AVL ABNORMAL ECG COMPARED TO ECG 06/24/2023 11:42:56 LEFT-AXIS DEVIATION NOW PRESENT Electronically Signed On 06-24-2023 14:53:27 STAVE BOLT EQUALIZER by Will Rinaldi D.O.
[2023-06-24 11:43] LABS: Troponin I < 0.012 ng/mL (0.000-0.034)
[2023-06-24] MEDS: ONDANSETRON INJ 4 MG/2 ML VIAL IV PUSH (12:59)
[2023-06-24] MEDS: HYDROmorphone HCL INJ (*CRX) 1 MG/ML SYR 0.5 MG IV PUSH ×2 (13:00→16:30)
--- NOTE | 2023-06-24 13:09 | PC.NURSE ---
spoke with pt concerning Hospice Care. Pt would like her oncologist called before deciding at this time.
--- NOTE | 2023-06-24 14:34 | ECG_ITS ---
Measurements Intervals [place] Rate: 80 P: 69 [place]: 144 QRS: -18 QRSD: 98 T: 38 QT: 373 QTc: 430 Interpretive Statements SINUS RHYTHM DELAYED PRECORDIAL R/S TRANSITION ANTEROSEPTAL INFARCT, AGE INDETERMINATE BASELINE WANDER- V5-V6 ABNORMAL ECG COMPARED TO ECG 06/24/2023 10:35:18 NO SIGNIFICANT CHANGES Electronically Signed On 06-25-2023 14:43:31 ROLLER STAINER by Will Rinaldi D.O.
[2023-06-24 14:36] LABS: Influenza A QL RT-PCR Negative (Negative); Influenza B QL RT-PCR Negative (Negative); RSV RNA, RT-PCR Negative (Negative); SARS-CoV-2 RNA PCR Negative (Negative)
[2023-06-24 14:55] LABS: Appearance Urine Clear (Clear); Bacteria Urine None Seen /hpf; Bilirubin Urine Negative (Negative); Blood Urine Negative (Negative); Color Urine Yellow (Yellow); Glucose Urine UA Negative (Negative); Ketones Urine Negative (Negative); Leukocyte Esterase Ur Negative LEU/UL (Negative); Nitrate Urine Negative (Negative); Non Pathogenic Casts 0-2; Protein Urine Negative (Negative); RBC Urine 0-2 /hpf (0-2); Specific Grav Ur 1.033 (1.001-1.035); Squamous Epithelial Cell Urine None seen /hpf (Few); Urobilinogen Urine 0.2 mg/dL (<2.0); WBC Urine 0-5 /hpf
[2023-06-24 14:57] LABS: Add Urine Microscopic? YES
--- NOTE | 2023-06-24 16:24 | PC.NURSE ---
Pt returned from Radiology post thoracentesis, resp reg & unlabored. C/O pain to right back. informed & orders received.
--- NOTE | 2023-06-24 17:53 | PCCCNOTE ---
CC called to ED to discuss Hospice with patient and her daughter. Pt and daughter were given literature on the different hospice organizations and all of their questions were answered. They are unsure at this time if they want palliative care or hospice care. Mrs. Fuller would still like to call her oncologist tomorrow and discuss this with her. I gave them the information and told them if they have any other questions how they could reach me. Pt is getting discharged from the ED faiza.
== END 2023-06-24 18:25 | disposition home or self-care (01) ==
PROVIDERS: Emergency Provider Emergency Medicine; PCP Family Medicine
DX: J90 Pleural effusion, not elsewhere classified (principal); C79.89 Secondary malignant neoplasm of other specified sites; C78.7 Secondary malignant neoplasm of liver and intrahepatic bile duct; S22.31XA Fracture of one rib, right side, initial encounter for closed fracture; U09.9 Post COVID-19 condition, unspecified; Z20.822 Contact with and (suspected) exposure to COVID-19; F41.9 Anxiety disorder, unspecified; N18.9 Chronic kidney disease, unspecified; K21.9 Gastro-esophageal reflux disease without esophagitis; F32.A Depression, unspecified; M19.90 Unspecified osteoarthritis, unspecified site; X58.XXXA Exposure to other specified factors, initial encounter
CPT/HCPCS: 32555; 36415; 36600; 49083; 71045; 71275; 74177; 80053; 81001; 82550; 82805; 84484; 85025; 85610; 85730; 86140; 87040; 87637; 93005; 96361; 96374; 96375; 96376; 99284; J1170; J2405; J7030; Q9967

== ENCOUNTER 2023-07-04 13:36 | Observation (INO) | payer MEDICARE, SELFPAY ==
--- NOTE | ~2023-07-04 | XR_ITS ---
XR chest 2V DATE: 07/04/2023 17:15 INDICATION: Shortness of breath. History of ovarian cancer TECHNIQUE: AP and lateral views COMPARISON: 06/24/2023 portable AP chest following thoracentesis FINDINGS: Moderately large right pleural effusion and right lower lung compressive atelectasis, opaci fying the lower approximately one half of the right hemithorax. The right upper lung and the left lung are essentially clear. No left pleural effusion is detected. Cardiomegaly. Right internal jugular Port-A-Cath catheter tip overlies the superior vena cava. Diffuse osteopenia. IMPRESSION: Large right pleural effusion with associated compressive right lower lung atelectasis, in creased since 07/04/2023 Reviewed, dictated and finalized at location B. AL PROFESSIONALS IMPRESSION: Large right pleural effusion with associated compressive right lowe r lung atelectasis, increased since 07/04/2023
--- NOTE | ~2023-07-04 | US_ITS ---
CORRECTED REPORT corrected exam description [facility] [place] 07/07/23 This report was recreated on 07/07/23. Original report was [employer] US thoracentesis w imaging DATE: 07/05/2023 11:08 INDICATION: Right pleural effusion TECHNIQUE: The procedure, technique and potential locations were discussed with the patient. The patient verbalized understanding and gave consent. The skin of the right posterior chest wall was prepared with sterile Betadine solution. 1% lidocaine local anesthetic was administered to the skin overlying a lower right posterior intercostal space identified by ultrasound for most optimal percutaneous access. Subsequently a single stick needle/catheter was introduced into the pleural cavity, yielding pleural fluid at the hub. The catheter was advanced and the needle withdrawn. 1 L of bloody fluid was drained into vacuum bottle. The patient was very cooperative and tolerated procedure well, without apparent complication IMPRESSION: Ultrasound guided percutaneous thoracentesis procedure yielding 1 L right pleural bloody fluid Reviewed, dictated and finalized at Location A. Reviewed, dictated and finalized at location A. [employer] MTDD
--- NOTE | ~2023-07-04 | US_ITS ---
US paracentesis abd w/image DATE: 07/05/2023 11:02 INDICATION: Ascites TECHNIQUE: The purpose of the procedure, technique and potential complications were discussed with th e patient. The patient verbalized understanding and gave consent. A site for percutaneous access was identified over the anterior lower left abdomen. The skin was prep ared with sterile Betadine solution. 1% lidocaine local anesthetic was administered to the skin and u nderlying subcutaneous tissues. A small amount of bloody fluid was obtained into vacuum bottle but flow was submitted and interrupted , likely due to nearby small bowel. No optimal sites were identified for second attempt XS. Delay in paracentesis until there is some mor e fluid is recommended for most optimal result. IMPRESSION: Limited amount of ascites with suboptimal areas for percutaneous access due to intervenin g small bowel. Delayed paracentesis until there is some more peritoneal fluid accumulation is recomme nded. Reviewed, dictated and finalized at Location A. Reviewed, dictated and finalized at location A. RETAILER IMPRESSION: Limited amount of ascites with suboptimal areas for percutaneous ac cess due to intervening small bowel. Delayed paracentesis until there is some m ore peritoneal fluid accumulation is recommended.
--- NOTE | ~2023-07-04 | XR_ITS ---
XR_[id number]_CR DATE: 07/05/2023 10:36 INDICATION: Postthoracentesis TECHNIQUE: AP chest on 07/05/2023 at 1033 hours following right thoracentesis COMPARISON: 06/24/2023 portable AP chest FINDINGS: There is mild right pleural effusion. There is bibasilar infiltrate or atelectasis, right g reater than left. No pneumothorax is detected following right thoracentesis. Right Port-A-Cath catheter tip overlies the lower superior vena cava. Heart size appears within normal limits. Aortic calcification and mild unfolding. Diffuse osteopenia. Surgical clips, right upper quadrant, consistent with cholecystectomy.. IMPRESSION: No evidence of right pneumothorax following thoracentesis Mild right pleural effusion, bibasilar infiltrate or atelectasis, greater on the right Reviewed, dictated and finalized at Location A. Reviewed, dictated and finalized at location A. ENTERPRISE PORTAL CONSULTANT IMPRESSION: No evidence of right pneumothorax following thoracentesis Mild right pleural effusion, bibasilar infiltrate or atelectasis, greater on th e right
[2023-07-04 13:56] VITALS: BP 137/81; PULSE 79; RESP 20; TEMP 36.6; O2SAT 97
--- NOTE | 2023-07-04 16:35 | ED.ABDPAIN ---
HPI - Abdominal Pain General Chief Complaint: Abdominal Pain Stated Complaint: pt states she needs a parencentesis Time Seen by Provider: 07/04/23 16:35 History of Present Illness HPI narrative: Patient is a 73 year old female with history of metastatic ovarian cancer here today with shortness of breath and abdominal distention. Patient notes that she has been struggling with pleural effusions and ascites due to her cancer. She has had multiple taps including the last one performed here on 06/24/23. She notes when she woke up this morning with significantly worsened shortness of breath, abdominal distention and lower extremity swelling. She notes recurrent issues of these in the past. I did speak with her oncologist who notes recurrent issues of the same, endorses that she likely needs a drain placed in the future which could be coordinated through her oncologists office if it can not be performed from here during her visit. Patient denies cough, congestion, fever, chest pain. Related Data Home Medications Medication Instructions Recorded Confirmed cholecalciferol (vitamin D3) 125 125 mcg PO DAILY 09/20/19 02/24/23 mcg (5,000 unit) capsule donepezil 10 mg tablet 10 mg PO QAM 09/20/19 02/24/23 biotin 10 mg tablet 10 mg PO DAILY 02/15/20 02/24/23 magnesium citrate 100 mg tablet 1,000 mg PO DAILY 02/15/20 02/24/23 mecobalamin (vitamin B12) 500 mcg PO QAM 02/15/20 02/24/23 omega-3 fatty acids 1,000 mg 1,000 mg PO DAILY 02/15/20 02/24/23 capsule (Fish Oil Concentrate) zinc 50 mg PO DAILY 02/15/20 02/24/23 glucosamine sulf dipot 1 cap PO DAILY 04/16/21 02/24/23 chlr,msm,chond 550 mg-C 30 mg-gómez 1 mg capsule (Glucosamine Chondroitin) vitamin E 1,000 unit tablet 1 tablet PO BID 04/16/21 02/24/23 bupropion HCl 200 mg tablet,12 hr 200 mg PO BID 07/04/21 02/24/23 sustained-release buspirone 10 mg tablet 10 mg PO TID 07/04/21 02/24/23 duloxetine 60 mg capsule,delayed 60 mg PO HS 07/04/21 02/24/23 release lorazepam 0.5 mg tablet 0.5 mg PO Q8H PRN anxiety 07/04/21 02/24/23 pantoprazole 40 mg tablet,delayed 40 mg PO DAILY 07/04/21 02/24/23 release rucaparib 250 mg tablet (Rubraca) 500 mg PO BID 09/10/22 02/24/23 lenalidomide 10 mg capsule 10 mg PO DAILY 01/13/23 02/24/23 (Revlimid) Allergies Allergy/AdvReac Type Severity Reaction Status Date / Time No Known Allergies Allergy Verified 07/04/23 13:37 Review of Systems Review of Systems: All systems reviewed & are unremarkable except as noted in HPI and below PMFSH Past Medical History Medical History Anxiety Carcinosarcoma of right ovary CKD (chronic kidney disease) stage 3, GFR 30-59 ml/min Depression Distal radius fracture, left (~02/2021) Dry mouth Dyslipidemia Environmental allergies GERD without esophagitis Left breast mass Mild cognitive impairment Morbid obesity Osteoarthritis Osteopenia Seasonal allergies Vision abnormalities Vitamin D deficiency Weight gain Surgical History Surgical History H/O breast biopsy (~2016) benign x2 in the left breast H/O rectal polypectomy (~2009) History of bariatric surgery (~2010) History of cataract surgery (~2018) bilaterally History of hysterectomy for cancer (~01/2022) History of resection of liver (~01/2022) partial History of splenectomy (~01/2022) History of tonsillectomy (~1956) Hx of cholecystectomy (~1997) Port-A-Cath in place (~05/2021) Status post total right knee replacement (~03/15/20) 03/15/20 Family History Family History Mother Depression Atrial fibrillation Father COPD (chronic obstructive pulmonary disease) Other Family history of Alzheimer's disease Family history of atrial fibrillation Social History Social History Social History: Smoking packs per day: 0.5 Smo
[2023-07-04 16:40] VITALS: BP 138/88; PULSE 81; RESP 16; O2SAT 97
[2023-07-04 17:03] LABS: Basophils Percent Auto 0.4 % (0.2-1.2); Eosinophils Absolute Auto 0.3 K/mm3 (0-0.3); Eosinophils Percent Auto 3.6 % (0-4.4); Hematocrit 34.5 % (37.0-47.0); Hemoglobin 11.1 g/dL (12.0-15.0); Immature Granulocyte Absolute 0.04 K/mm3 (0.00-0.031); Immature Granulocyte Percent A 0.4 % (0-0.5); Lymphocytes Absolute Auto 1.08 K/mm3 (0.9-3.2); Lymphocytes Percent Auto 11.4 % (18.3-44.2); Mean Corpuscular HGB Conc 32.2 g/dl (32-36); Mean Corpuscular Hemoglobin 31.2 pg (26-34); Mean Corpuscular Volume 96.9 fl (80-100); Mean Platelet Volume 9.3 fl (7.4-10.4); Monocytes Absolute Auto 1.3 K/mm3 (0.1-0.6); Monocytes Percent Auto 13.3 % (2.6-8.5); Neutrophils Absolute Auto 6.7 K/mm3 (1.3-6.7); Neutrophils Percent Auto 70.9 % (45.5-73.1); Platelet Count Result 401 k/mm3 (150-375); Red Blood Count 3.56 M/mm3 (4.2-5.4); Red Cell Distribution Width 15.3 % (11.5-14.5); White Blood Count 9.5 K/mm3 (4.5-10.0)
[2023-07-04 17:13] LABS: INR 1.1; Prothrombin Time 14.2 Seconds (11.1-14.7)
[2023-07-04 17:14] LABS: Alanine Aminotransferase 58 U/L (6-35); Albumin Level 3.3 g/dL (3.5-5.1); Alkaline Phosphatase 324 U/L (38-126); Anion Gap 4 mmol/L (8-16); Aspartate Amino Transferase 99 U/L (14-36); Bilirubin,Total 0.6 mg/dL (0.2-1.3); Blood Urea Nitrogen 12 mg/dL (7-17); Calcium 8.7 mg/dL (8.4-10.2); Carbon Dioxide 27 mmol/L (22-30); Chloride 99 mmol/L (98-107); Estimated CRCL calculation 61 ml/min; Estimated Glomerular Filt Rate > 60; Glucose 104 mg/dL (65-110); Partial Thromboplastin Time 36.7 SECONDS (22.3-36.8); Potassium 3.9 mmol/L (3.4-5.0); Sodium 130 mmol/L (137-145)
[2023-07-04 19:21] VITALS: BP 131/72; PULSE 81; RESP 28; TEMP 36.4; O2SAT 97
[2023-07-04] MEDS: BENZONATATE 100 MG CAPSULE PO (20:56)
[2023-07-04 21:27] VITALS: BP 147/91; PULSE 87; RESP 22; O2SAT 94
--- NOTE | 2023-07-04 21:58 | ADMGEN ---
This patient, Claire Fuller, was admitted to Medical Room 247-. Patient/family oriented to hospital policies and general routines including ID bracelet, bed and alarms, visiting hours, pain management, procedures, bathroom and other care routines, personal items, smoking policy, room service/diet, and visiting hours. Information on how to activate the Rapid Response Team has been discussed. Patient/Family are encouraged to report perceived risks to care and to ask questions if they do not understand what they are told or what they should do.
[2023-07-04 22:00] VITALS: BP 156/88; PULSE 85; RESP 22; TEMP 35.9; O2SAT 98
[2023-07-04 22:04] VITALS: BMI 39.2
[2023-07-05 04:56] VITALS: BP 128/68; PULSE 87; RESP 20; O2SAT 92
[2023-07-05 08:00] VITALS: PULSE 94; RESP 22; O2SAT 94
[2023-07-05 11:06] LABS: Basophils Absolute Auto 0.1 K/mm3 (0.0-0.1); Basophils Percent Auto 0.8 % (0.2-1.2); Eosinophils Absolute Auto 0.4 K/mm3 (0-0.3); Eosinophils Percent Auto 4.3 % (0-4.4); Hematocrit 36.8 % (37.0-47.0); Hemoglobin 10.9 g/dL (12.0-15.0); Immature Granulocyte Absolute 0.05 K/mm3 (0.00-0.031); Immature Granulocyte Percent A 0.6 % (0-0.5); Lymphocytes Absolute Auto 0.91 K/mm3 (0.9-3.2); Lymphocytes Percent Auto 10.6 % (18.3-44.2); Mean Corpuscular HGB Conc 29.6 g/dl (32-36); Mean Corpuscular Hemoglobin 31.8 pg (26-34); Mean Corpuscular Volume 107.3 fl (80-100); Mean Platelet Volume 9.3 fl (7.4-10.4); Monocytes Absolute Auto 1.3 K/mm3 (0.1-0.6); Monocytes Percent Auto 15.3 % (2.6-8.5); Neutrophils Absolute Auto 5.9 K/mm3 (1.3-6.7); Neutrophils Percent Auto 68.4 % (45.5-73.1); Platelet Count Result 346 k/mm3 (150-375); Red Blood Count 3.43 M/mm3 (4.2-5.4); White Blood Count 8.6 K/mm3 (4.5-10.0)
[2023-07-05] MEDS: SODIUM CHLORIDE 0.9% IV 1,000 ML 75 ML IV CONT (11:16)
[2023-07-05 11:17] LABS: Anion Gap 5 mmol/L (8-16); Blood Urea Nitrogen 13 mg/dL (7-17); Calcium 8.6 mg/dL (8.4-10.2); Carbon Dioxide 27 mmol/L (22-30); Chloride 99 mmol/L (98-107); Estimated CRCL calculation 66 ml/min; Estimated Glomerular Filt Rate > 60; Glucose 102 mg/dL (65-110); Sodium 131 mmol/L (137-145)
[2023-07-05 11:19] LABS: Hypochromasia 1+ (NORMAL); Platelet Estimate Adequate (Adequate); Schistocytes None Seen (NORMAL)
[2023-07-05] MEDS: CHOLECALCIFEROL 1,000 UNITS TABLET 5000 UNITS PO (12:57)
[2023-07-05] MEDS: busPIRone HCL 5 MG TABLET 15 MG PO (12:58)
[2023-07-05] MEDS: CYANOCOBALAMIN 500 MCG TABLET PO (12:58)
[2023-07-05] MEDS: BENZONATATE 100 MG CAPSULE PO (12:58)
[2023-07-05] MEDS: ZINC SULFATE 220 MG CAPSULE PO (12:58)
[2023-07-05] MEDS: buPROPion HCL SR (12HR) 100 MG TABCR 200 MG PO (12:59)
[2023-07-05] MEDS: VITAMIN E 1,000 UNIT CAPSULE 1000 UNIT PO (13:00)
--- NOTE | 2023-07-05 13:21 | PM.SD2 ---
Same Day Admit/Disch: HPI History of Present Illness Chief complaint: pleural effusion, ascites Narrative: Claire Fuller is a 73 year old with history of metastatic ovarian cancer admitted with shortness of breath and abdominal distention. Patient has been struggling with pleural effusions and ascites due to her cancer. She has had multiple taps including the last one performed here on 06/24/23. She was supposed to be on a 2 week schedule with her oncologist, but her symptoms were too severe for her to wait. Plan with her current oncologist to have a drain placed next week at [facility]. Patient denies cough, congestion, fever, chest pain. Patient denies any new medical diagnoses. Denies any viral symptoms, n/v/diarrhea. She was admitted for paracentesis and thoracentesis as they were not able to do in the ER last night. [facility] Past Medical History Medical History Anxiety Carcinosarcoma of right ovary CKD (chronic kidney disease) stage 3, GFR 30-59 ml/min Depression Distal radius fracture, left (~02/2021) Dry mouth Dyslipidemia Environmental allergies GERD without esophagitis Left breast mass Mild cognitive impairment Morbid obesity Osteoarthritis Osteopenia Seasonal allergies Vision abnormalities Vitamin D deficiency Weight gain Surgical History Surgical History H/O breast biopsy (~2016) benign x2 in the left breast H/O rectal polypectomy (~2009) History of bariatric surgery (~2010) History of cataract surgery (~2018) bilaterally History of hysterectomy for cancer (~01/2022) History of resection of liver (~01/2022) partial History of splenectomy (~01/2022) History of tonsillectomy (~1956) Hx of cholecystectomy (~1997) Port-A-Cath in place (~05/2021) Status post total right knee replacement (~03/15/20) 03/15/20 Family History Family History Mother Depression Atrial fibrillation Father COPD (chronic obstructive pulmonary disease) Other Family history of Alzheimer's disease Family history of atrial fibrillation Social History Social History Social History: Smoking packs per day: 0.5 Smoking cigarettes per day: 10.0 Years smoked: 15 Smoking pack-years: 7.50 Smoking status: Former smoker Tobacco type: cigarettes Second hand tobacco smoke exposure: No Smoking end date: 06/16/79 Additional smoking assessment comments: STATES [id number] 1985 Alcohol intake: current Drinks per week: 7 Alcohol use details: STATES NO ALCHOL FOR PAST WEEK Substance use: never Substance use type: does not use Do You Feel Safe in your Home?: Yes Lack of Transportation: No Lack of Food: Never True Current Housing: I Have Housing Concerned About Future Housing: No Difficulty Paying Gas/Electric Bills: No Difficulty Paying for Meds: No Currently Unemployed: No Education: Associate Degree Difficulty w/ Childcare or Family Care: No Living arrangements: alone Gender identity (if verbalized by the patient): Female Spiritual care concerns: No Same Day Admit/Disch: Med Pre-admit Medications Home Medications Medication Instructions Recorded Confirmed Type cholecalciferol (vitamin D3) 125 125 mcg PO DAILY 09/20/19 07/04/23 History mcg (5,000 unit) capsule donepezil 10 mg tablet 10 mg PO QAM 09/20/19 07/04/23 History magnesium citrate 100 mg tablet 100 mg PO DAILY 02/15/20 07/05/23 History mecobalamin (vitamin B12) 500 mcg PO QAM 02/15/20 07/04/23 History omega-3 fatty acids 1,000 mg 1,000 mg PO DAILY 02/15/20 07/04/23 History capsule (Fish Oil Concentrate) zinc 50 mg PO DAILY 02/15/20 07/04/23 History calcium carbonate 1,000 mg-vitamin 1 tablet PO DAILY #30 tabs 09/12/20 07/04/23 Rx D3 20 mcg (800 unit) tablet glucosamine sulf dipot 1 cap
[2023-07-05 13:52] VITALS: BP 135/73; PULSE 94; RESP 22; TEMP 36.7; O2SAT 94
[2023-07-05] MEDS: NEOMYCIN/POLYMYXIN/BACITRACIN OINTMENT PACKET 1 PACKET (15:21)
--- NOTE | 2023-07-16 10:02 | PC.NURSE ---
Blood cx are negative.
== END 2023-07-05 15:32 | disposition home or self-care (01) ==
LOC: ANHED 16:49 → ANH2MED 22:17
PROVIDERS: Nurse Practitioner; Admitting Provider Internal Medicine; Emergency Provider Student in an Organized Health Care Education/Training Program; PCP Family Medicine; Visit Provider Hospitalist
DX: J90 Pleural effusion, not elsewhere classified (principal); R18.8 Other ascites; C56.1 Malignant neoplasm of right ovary; C79.9 Secondary malignant neoplasm of unspecified site; F41.9 Anxiety disorder, unspecified; N18.30 Chronic kidney disease, stage 3 unspecified; F32.A Depression, unspecified; E78.5 Hyperlipidemia, unspecified; K21.9 Gastro-esophageal reflux disease without esophagitis; F06.70 Mild neurocognitive disorder due to known physiological condition without behavioral disturbance; E66.01 Morbid (severe) obesity due to excess calories; Z68.39 Body mass index [BMI] 39.0-39.9, adult; M19.90 Unspecified osteoarthritis, unspecified site; M85.80 Other specified disorders of bone density and structure, unspecified site; Z90.710 Acquired absence of both cervix and uterus; Z98.84 Bariatric surgery status; F10.90 Alcohol use, unspecified, uncomplicated; Z87.891 Personal history of nicotine dependence; Z79.899 Other long term (current) drug therapy; Z81.8 Family history of other mental and behavioral disorders
CPT/HCPCS: 32555; 36415; 49083; 71046; 80048; 80053; 85025; 85610; 85730; 87040; 99285; A9270; G0378; J7030